=== PATIENT | male | born 1985 | race Hispanic/Latino ===

== ENCOUNTER 2018-10-17 11:58 | Inpatient (IN) ==
[2018-10-17] MEDS ORDERED: TORADOL IV ONE (12:53)
[2018-10-17] MEDS ORDERED: PROTONIX IV ONE (12:53)
[2018-10-17 13:25] LABS: URINE SOURCE CATH
[2018-10-17 13:29] LABS: BASO# 0.03 X1000 (0.0-0.2); BASO% 0.3 % (0.0-0.8); EOS% 2.9 % (0.0-10.0); HEMATOCRIT 44.5 % (42.0-52.0); HEMOGLOBIN 15.3 g/dL (14.0-18.0); IMM GRAN# 0.04 X1000 (0.0-0.04); IMM GRAN% 0.4 % (0.0-0.5); LYMPH# 0.79 X1000 (1.2-3.4); LYMPH% 7.6 % (20.5-51.1); MCHC 34.4 g/dL (33-37); MCV 81.5 FL (81-99); MONO# 1.32 X1000 (0.11-0.59); MONO% 12.6 % (1.7-9.3); MPV 8.8 FL (7.4-10.4); NEUT# 7.98 X1000 (1.4-6.5); NEUT% 76.2 % (42.2-75.2); PLT 354 X1000 (130-400); RBC 5.46 XMIL (4.7-6.1); RDW 12.1 % (11.5-14.5); WBC 10.46 X1000 (4.8-10.8)
[2018-10-17 13:32] LABS: UR EPITHELIAL CELLS <10 /HPF (<10); URINE BACTERIA NEGATIVE /HPF; URINE RBC <10 /HPF (<10); URINE WBC <10 /HPF (<10)
[2018-10-17 13:34] LABS: BILIRUBIN URINE NEGATIVE (NEGATIVE); BLOOD URINE NEGATIVE (NEGATIVE); COLOR YELLOW; GLUCOSE URINE NEGATIVE (NEGATIVE); KETONE URINE 80 mg/dL (NEGATIVE); LEUKOCYTES URINE NEGATIVE (NEGATIVE); NITRITE URINE NEGATIVE (NEGATIVE); PROTEIN URINE 30 mg/dL (NEGATIVE); SP GRAVITY URINE 1.022; TURBIDITY URINE CLEAR (CLEAR); UROBILINOGEN URINE NORMAL (NORMAL)
[2018-10-17] MEDS: SODIUM CHLORIDE 0.9% INJ ONE (13:37)
[2018-10-17 13:44] LABS: ESTIMATED GFR > 60
[2018-10-17 13:46] LABS: AGAP 14; ALBUMIN 3.6 g/dL (3.5-5.0); ALKALINE PHOSPHATASE 186 U/L (32-122); AMYLASE 58 U/L (20-200); BUN 7 mg/dL (8-22); CALCIUM 9.2 mg/dL (8.8-10.2); CHLORIDE 89 mmol/L (98-107); COSMO 259; CREATININE 0.6 mg/dL (0.7-1.2); GLUCOSE 105 mg/dL (70-104); GOT 23 U/L (10-34); GPT 34 U/L (10-44); LIPASE 39 U/L (13-60); POTASSIUM 4.3 mmol/L (3.5-5.1); SODIUM 130 mmol/L (136-145); TCO2 27 mmol/L (25-35); TOTAL BILIRUBIN 0.31 mg/dL (0.20-1.00); TOTAL PROTEIN 7.3 g/dL (6.3-8.3)
--- NOTE | 2018-10-17 14:47 | Diag Imaging Result Doc PS360 ---
CT ABD/PELVIS W/IV CONT ONLY - 10/17/2018 INDICATION: abdominal pain COMPARISON: 10/02/2018 FINDINGS: There is a moderate right and small left pleural effusion. There is some passive atelectasis of the lower lobes. Heart size is normal. There is a small amount of ascites. There is diffuse density throughout the omentum consistent with omental caking. There is significant peritoneal enhancement. Urinary bladder, prostate, and rectum are normal. No bowel obstruction or free air. There is some nonspecific small bowel wall thickening in the left mid abdomen. Abdominal organs all appear normal. Bony structures are intact. IMPRESSION: Bilateral pleural effusions. Small amount of ascites. Probable peritoneal carcinomatosis. Nonspecific small bowel wall thickening in the left mid abdomen. This exam was performed using automated exposure control, adjustment of mA or kV according to patient size, and/or use of iterative reconstruction technique Electronically signed by Bryce Villalpando 10/17/2018 2:45 PM
--- NOTE | 2018-10-17 15:56 | PROVIDER DOCUMENTATION ---
This chart was entered by Miroslava Ocampo Scribe, acting as scribe for Thelma Aguirre MD. HPI-Abdominal Pain/GI Problem - General Chief Complaint: Abdominal Pain Stated Complaint: STOMACH PAIN Time Seen by Provider: 10/17/18 12:50 Source: patient, family Allergies/Adverse Reactions: Patient Allergies Allergy/AdvReac Type Severity Reaction Status Date / Time No Known Allergies Allergy Verified 10/17/18 12:39 Home Medications: Home Medication List Medication Instructions Recorded Confirmed Last Taken Type Ciprofloxacin HCl [Cipro] 500 mg PO BID 10/17/18 10/17/18 Unknown History Metronidazole 500 mg PO TID 10/17/18 10/17/18 Unknown History - History of Present Illness-ABD Nature of Presenting Problems: 33 yohm presents to the ed with c/o abdominal pain with diarrhea. pt sts has been dring alcohol more the last 3 months. pt saw pcp and was given abx shots but does not feel any better. pt also c/o discharge from penis but none was seen on exam Abdominal Pain Onset Location: reports: generalized abdomen Quality of Pain: reports: aching Severity in ED: reports: moderate Onset/Duration: reports: 3 days ago Timing: reports: still present, intermittent Activities at Onset: reports: light activity Modifying Factors: improves with: nothing. worse with: eating, other (ETOH) Associated Symptoms: reports: diarrhea, genitourinary problems (discharge from penis), loss of appetite, malaise. denies: back/neck pain, chest pain, fever/chills, headaches, nausea, shortness of breath, vomiting, weakness Last BM: last night Dark Stools Present?: reports: none noticed Rectal Bleeding: reports: none # of Diarrhea Episodes: 4 Rectal Pain: reports: none # of Vomiting Episodes: 0 Emesis Description: reports: none Bruising or Bleeding Gums?: No Similar Symptoms Previously?: Yes (diverticulitis) Recently seen or treated by another doctor?: Yes (saw pcp) Review of Systems - Adult - REVIEW OF SYSTEMS - ADULT ROS:: ROS per family (translater) Constitutional: denies: chills, fever Eyes: reports: no symptoms reported Ears, Nose, Mouth & Throat: reports: no symptoms reported Cardiovascular: denies: chest pain, palpitations Respiratory: denies: shortness of breath, wheezing Gastrointestinal: reports: see HPI, abdominal pain, diarrhea, poor appetite. d enies: nausea, vomiting Genitourinary: reports: see HPI, dysuria Musculoskeletal: denies: back pain, neck pain Integumentary: reports: no symptoms reported Neurological: denies: dizziness/vertigo, headache/migraines Psychiatric: reports: no symptoms reported Endocrine: reports: no symptoms reported Hematologic/Lymphatic: reports: no symptoms reported Allergic/Immunologic: reports: no symptoms reported All Other Systems: Reviewed and Negative Past History - Adult - PAST MEDICAL HISTORY-ADULT Review of Records: reports: Old Records Reviewed, Nursing Assessment Review, Medications Reviewed, Social history reviewed & non-contributory. Major Childhood Illnesses: reports: denies history Cardiovascular: reports: denies history Respiratory: reports: denies history Gastrointestinal: reports: denies history Genitourinary: reports: denies history Musculoskeletal: reports: denies history Hand Dominance: Right Handed Neurological: reports: denies history Psychiatric: reports: denies history Endocrine/Immune: reports: denies history Other Conditions: reports: denies history - PRIOR SURGERIES/PROCEDURES Surgical/Procedure History: reports: none - PRIOR HOSPITALIZATIONS Prior Hospitalizations: reports: none - IMMUNIZATION STATUS Childhood Immunizations: See Nurse Assessment Flu Vaccine: See Nurse Assessment - FAMILY HISTORY Family History: reviewed, not pertinent - SOCIAL HISTORY Smoking: denies Substance Use: alcohol Alcohol Use Frequency: 5-6 times a week Number of drinks per typical drinking period:: 3-4 drinks Living Situation: family Physical Exam-General - PHYSICAL EXAM-ADULT Initial Vital Signs Reviewed: Yes - CONSTITUTIONAL General Appearance: appears well, alert, mild distress - EYES Eyes: PERRL/EOMI, pink conjunctivae - HEAD, EARS, NOSE, MOUTH & THROAT HENMT: normocephalic/atraumatic, moist mucous membranes, normal ENT inspection - NECK Neck: non-tender, full range of motion, supple, normal inspection - RESPIRATORY Respiratory: chest non-tender, lungs clear, normal breath sounds - CARDIOVASCULAR Cardiovascular: normal peripheral pulses, regular rate, rhythm - GASTROINTESTINAL (ABDOMEN) Abdominal Exam: soft, no organomegaly, no pulsatile mass, abnormal bowel sounds (hyper), distended (mild), guarding, tenderness (diffuse). negative: rigid, rebound - LYMPHATIC Lymphatic: no adenopathy - MUSCULOSKELETAL Back Exam: normal inspection, no CVA tenderness, no vertebral tenderness Extremity: normal range of motion, non-tender, normal gait, normal inspection, no pedal edema, no calf tenderness, normal capillary refill - SKIN Integumentary: normal color, normal turgor, warm/dry - NEUROLOGIC Neurologic: grossly normal, no motor/sensory deficits - PSYCHIATRIC Psych/Mental Status: normal mood/affect, normal thought content, normal thought process, oriented x 3 Progress - PLAN OF CARE/RESULTS Progress/Plan/Lab Results: Vital Signs - 8 hr 10/17/18 12:04 Temperature 98.2 F Pulse Rate 89 Respiratory Rate 20 Blood Pressure 134/94 O2 Sat by Pulse Oximetry 96 Orders Category Date Time Status Saline Loc DIRECTED Care 10/17/18 12:51 Active NPO Diet 10/17/18 12:[address] ABD/PELVIS W/IV CONT ONLY [CT] Stat Exams 10/17/18 12:52 Ordered AMYLASE [CHEM] Stat Lab 10/17/18 12:51 Uncollected CBC WITH ELECTRONIC DIFF [HEME] Stat Lab 10/17/18 12:51 Uncollected COMPREHENSIVE METABOLIC PANEL [CHEM] Stat Lab 10/17/18 12:51 Uncollected LIPASE [CHEM] Stat Lab 10/17/18 12:51 Uncollected URINALYSIS W/POSS RFLX CULT [URINALYSIS] Stat Lab 10/17/18 12:51 Uncollected Ketorolac [Toradol] Med 10/17/18 12:53 Discontinued 30 mg IV NOW ONE Pantoprazole [Protonix] Med 10/17/18 12:53 Discontinued 40 mg IV NOW ONE Sodium Chloride 0.9% Med 10/17/18 12:53 Discontinued 10 ml INJ NOW ONE Result Diagrams: 10/17/18 12:29 10/17/18 12:29 - REASSESSMENT Reassessment #1 Time Reassessed: 14:18 (resting in bed) Status: unchanged Reassessment #2 Time Reassessed: 15:33 (dr aguirre spoke with pt and family about poc and dx. pt verbalized understanding and agreement with poc) - CT/MRI 1 CT Study: Abdomen, Pelvis Impression: See EMR Report (CT ABD/PELVIS W/IV CONT ONLY - 10/17/2018 INDICATION: abdominal pain COMPARISON: 10/02/2018 FINDINGS: There is a moderate right and small left pleural effusion. There is some passive atelectasis of the lower lobes. Heart size is normal. There is a small amount of ascites. There is diffuse density throughout the omentum consistent with omental caking. There is significant peritoneal enhancement. Urinary bladder, prostate, and rectum are normal. No bowel obstruction or free air. There is some nonspecific small bowel wall thickening in the left mid abdomen. Abdominal organs all appear normal. Bony structures are intact. IMPRESSION: Bilateral pleural effusions. Small amount of ascites. Probable peritoneal carcinomatosis. Nonspecific small bowel wall thickening in the left mid abdomen. This exam was performed using automated exposure control, adjustment of mA or kV according to patient size, and/or use of iterative reconstruction technique Electronically signed by Bryce Villalpando 10/17/2018 2:45 PM 10/17/18 1445 Interpreting Physician: Bryce Villalpando MD Dictated Date/Time: 10/17/18 1429 cc: Thelma Aguirre MD; Valdo Todd MD) - CONSULTS/PCP/HOSPITALIST Notification #1 *Consult/PCP/Hospitalist*: hospitalist Time Discussed: 15:32 (spoke with [facility]) Reason/Comments: abdominal cancer dr nevarez Consult Disposition: Admit #2 Consult: dr esparza srobbie Time Discussed: 15:52 Reason/Comments: phone consult Consult Disposition: other Departure - Departure Date of Disposition Decision: 10/17/18 Time of Disposition Decision: 15:34 DIAGNOSIS: Ascites Qualifiers: Ascites type: malignant Qualified Code(s): R18.0 - Malignant ascites Abdominal pain Qualifiers: Abdominal location: generalized Qualified Code(s): R10.84 - Generalized abdominal pain Disposition: ADMITTED INPATIENT 09 Certified Medical Emergency: Emergent Condition: Stable Referrals and Follow-Ups: Valdo Todd MD [Primary Care Provider] - - Critical Care Note This patient required my direct & personal management of CC.: Yes Total Time (mins): 38 Critical Care Statement: This patient required my direct personal management to treat or rule out processes, the absence of which, could potentiallly result in sudden, clinically significant life or limb threatening deterioration. Attestation - Physician/ WALI Attestation Patient care was provided by Advanced Practice Provider:: No The physician spent face to face time with patient:: Yes Advanced Practice Provider documentation review:: Supervising physician onsite and consulted in the evaluation and care of this patient. The physician did have a face to face encounter with the patient. This chart was documented by the indicated scribe, (Miroslava Ocampo Scribe) and accurately reflects the services I performed and decisions made by , Thelma gAuirre MD, as attested by the provider's signature.
--- NOTE | 2018-10-17 16:23 | Diag Imaging Result Doc PS360 ---
CT THORAX W/CONTRAST - 10/17/2018 INDICATION: r/o malg. COMPARISON: None FINDINGS: There is a moderate right and small left pleural effusion. There is bilateral lower lobe atelectasis. There is some hazy central interstitial infiltrate bilaterally compatible with pulmonary edema. There are some top normal size mediastinal lymph nodes but no adenopathy. Heart and great vessels are normal. Bony structures are intact and normally mineralized. IMPRESSION: Central interstitial infiltrates compatible with pulmonary edema. Bilateral pleural effusions. Bilateral lower lobe passive atelectasis. This exam was performed using automated exposure control, adjustment of mA or kV according to patient size, and/or use of iterative reconstruction technique Electronically signed by Bryce Villalpando 10/17/2018 4:21 PM
--- NOTE | 2018-10-17 16:34 | HISTORY AND PHYSICAL ---
PRIMARY CARE PHYSICIAN: None. CHIEF COMPLAINT: Abdominal pain. HISTORY OF PRESENT ILLNESS: This is a 33-year-old male with unremarkable past medical history, who presented to the emergency department complaining of abdominal pain. He had been seen here in the ER at [facility] on 10/02/2018 for the same complaint. He reports that he started having pain in the left lower quadrant one month ago that started to get worse progressively. He reports a weight loss of 4 pounds. He reports he has a good appetite, but he is not eating well because every time he eats because the abdominal distention after he eats causes pain and that is why he was not eating properly. After he has been seen here in the ER on October 02, he went to see Dr. Celeste from Gastroenterology at his office. A paracentesis was done. We do not have the results of those exams. He was prescribed metronidazole for that, and because the pain continued to get worse, he decided to come to the emergency department. Upon ER evaluation, the abdominal CT show bilateral pleural effusion with a small amount of ascites. They report also possible peritoneal carcinomatosis and nonspecific small bowel thickening in the left mid abdomen, so that is why we were called for admission. PAST MEDICAL HISTORY: None. PAST SURGICAL HISTORY: None. SOCIAL HISTORY: Patient lives with and daughter. He reports drinking alcohol since he was 13. He used to drink according to him for many days in a row, but according to the of the patient, he stopped drinking 2 or 3 months ago. He denies using any illicit drugs or smoking cigarettes. FAMILY HISTORY: The patient has a brother who has apparently an stroke, and father from unknown disease. REVIEW OF SYSTEMS: Eleven systems were reviewed. Patient has a weight loss of 4 pounds. He denies any night sweats. Reports no changes in bowel movements. Patient used to be constipated. DISCHARGE PHYSICAL EXAMINATION: Vital signs: Temperature 98.2 degrees, heart rate 89, respiratory rate 20, blood pressure 134/94, O2 saturation 96% on room air. General examination: This is a 33-year-old male, lying in bed, in no acute distress. HEENT: Head is normocephalic and atraumatic. Pupils equally round and reactive to light and accommodation. Anicteric sclerae. Normal conjunctivae. Neck: No JVD noted. No carotid bruits. No lymphadenopathy. No thyromegaly. Cardiovascular: S1, S2 heard. No murmurs, gallops, or rubs. Regular rate and rhythm. Respiratory: Clear bilaterally to auscultation. No work of breathing or using accessory muscles. Abdomen: Soft, a little bit distended, but no signs of obvious ascites, moderately tender to palpation in the left lower quadrant. No signs of peritoneal irritation. No guarding. Extremities: No clubbing, cyanosis, or edema. Peripheral pulses present in both legs. Neurological: Patient alert and oriented x3. Moves 4 extremities. LABORATORY DATA: CBC is unremarkable. BMP shows sodium 130 with anion gap 14, creatinine 0.6, alkaline phosphatase 186. Normal urinalysis. ASSESSMENT AND PLAN: 1. Abdominal pain. We are not sure at this point, what is causing this pain. The CT of the abdomen shows a small amount of ascites and possible peritoneal carcinomatosis. Because this pain is getting worse, we are going to admit the patient for further workup. We are going to consult Gastroenterology for possible endoscopy and colonoscopy. To complete the staging for possible abdominal cancer, we will do a CT of the thorax with contrast. We are going to do an abdominal ultrasound as well. I am not quite sure if we are going to find ascites or not to get another sample of that. We will try to get records from Dr. Celeste's office about results of peritoneal fluid. We are going to provide IV fluids and pain medications as well. We will continue to monitor this patient closely. 2. History of alcohol abuse. At this point, I do not think this patient will going into withdrawal because he had stopped drinking 2 months ago. We will continue to monitor. Further recommendations to follow according to the clinical situation of the patient. cc: Zoltan Santana MD MTDD
[2018-10-17] MEDS ORDERED: SODIUM CHLORIDE 0.9% INJ ONE (16:46)
[2018-10-17] MEDS: PROTONIX IV SCH (16:46)
[2018-10-17] MEDS ORDERED: ZOFRAN IV PRN (16:46)
[2018-10-17] MEDS: TORADOL IV SCH ×2 (16:50→22:51)
[2018-10-17] MEDS: NS 1,000 ML IV SCH (16:55)
--- NOTE | 2018-10-17 16:56 | Diag Imaging Result Doc PS360 ---
US ABDOMEN-COMPLETE - 10/17/2018 INDICATION: abdominal pain LLQ COMPARISON: CT with contrast from earlier today FINDINGS: There is ascites. There is significant echogenic sludge in the gallbladder. No gallbladder wall thickening. The spleen measures 11.7 x 10.9 x 4 cm. The liver and both kidneys are normal. Common bile duct measures 4 mm. Aorta, IVC, and main portal vein are patent. There are bilateral pleural effusions. IMPRESSION: 1. Significant sludge in the gallbladder but no definite gallbladder inflammation. 2. Ascites. Bilateral pleural effusions. Electronically signed by Bryce Villalpando 10/17/2018 4:54 PM
[2018-10-17 20:39] LABS: BASO# 0.03 X1000 (0.0-0.2); BASO% 0.3 % (0.0-0.8); EOS% 5.3 % (0.0-10.0); HEMATOCRIT 40.8 % (42.0-52.0); HEMOGLOBIN 14.1 g/dL (14.0-18.0); IMM GRAN# 0.03 X1000 (0.0-0.04); IMM GRAN% 0.3 % (0.0-0.5); LYMPH# 1.28 X1000 (1.2-3.4); LYMPH% 13.5 % (20.5-51.1); MCH 28.3 PG (27-31); MCHC 34.6 g/dL (33-37); MCV 81.9 FL (81-99); MONO% 11.6 % (1.7-9.3); MPV 8.2 FL (7.4-10.4); NEUT# 6.56 X1000 (1.4-6.5); PLT 328 X1000 (130-400); RBC 4.98 XMIL (4.7-6.1); RDW 12.2 % (11.5-14.5)
[2018-10-17 20:59] LABS: AGAP 14; ALB/GLOB RATIO 0.9; ALBUMIN 3.1 g/dL (3.5-5.0); ALKALINE PHOSPHATASE 154 U/L (32-122); BUN 9 mg/dL (8-22); CALCIUM 8.6 mg/dL (8.8-10.2); CHLORIDE 94 mmol/L (98-107); COSMO 264; CREATININE 0.7 mg/dL (0.7-1.2); ESTIMATED GFR > 60; GLUCOSE 88 mg/dL (70-104); GOT 18 U/L (10-34); GPT 28 U/L (10-44); POTASSIUM 4.3 mmol/L (3.5-5.1); SODIUM 133 mmol/L (136-145); TCO2 25 mmol/L (25-35); TOTAL BILIRUBIN 0.33 mg/dL (0.20-1.00); TOTAL PROTEIN 6.4 g/dL (6.3-8.3)
[2018-10-17] MEDS: MORPHINE IV PRN (21:11)
[2018-10-18] MEDS: MORPHINE IV PRN ×2 (04:18→18:51)
[2018-10-18] MEDS: TORADOL IV SCH ×4 (04:18→21:43)
[2018-10-18] MEDS: NS 1,000 ML IV SCH ×2 (06:48→21:42)
[2018-10-18 12:08] LABS: INR 1.09
[2018-10-18 12:09] LABS: PTT 31.2 Seconds (22.3-41.8)
--- NOTE | 2018-10-18 12:16 | GASTROENTEROLOGY CONSULTATION ---
DATE: 10/18/2018 ATTENDING PHYSICIAN: Dr. Jones. PRIMARY CARE DOCTOR: Dr. Todd. REASON FOR CONSULTATION: Abdominal pain and abnormal CAT scan, elevated CEA. HISTORY OF PRESENT ILLNESS: Mr. Maharaj is a 33-year-old, male who was admitted on 10/17/2018 for worsening abdominal pain. According to the patient, this pain started for the last 1 month and has gotten worse. He has lost about 4 pounds in the last 1 month. Initial workup in the ER had shown evidence of ascites. He was seen by Dr. Celeste as an outpatient. He had a paracentesis but the paracentesis fluid did not show any evidence of malignancy. He progressively got worse and came to the ER. The CAT scan done this time showed evidence of bilateral pleural effusion, a small amount of ascites, and nonspecific small bowel thickening in the left mid abdomen, and possible peritoneal carcinomatosis. He had a CEA done which was elevated at 10.8. The patient denies any previous history of EGD or colonoscopy in the past. He denies any family history of colon cancer or stomach cancer. The patient had been a heavy drinker since age 13 but he had quit about 2 or 3 months ago. He denied any nausea, vomiting, vomiting blood, or passing blood in the stools. PAST MEDICAL HISTORY: Abdominal pain for the last 1 month, ascites. PAST SURGICAL HISTORY: He had a paracentesis done at [facility] per Dr. Celeste. SOCIAL HISTORY: He is . His lives with his and daughter. He reports drinking about 12 beers on the weekends and sometimes on weekdays but he had quit about 2 or 3 months ago. He denies any history of illicit drug use or smoking. FAMILY HISTORY: Brother had a stroke. Father of unknown cause. REVIEW OF SYSTEMS: Denies any fevers, rigors, chills, chest pain, shortness of breath, dyspnea. Denies any vomiting blood or passing blood in the stools. Does complain of weight loss and chronic abdominal pain. MEDICATIONS: In the hospital include morphine, ketorolac, normal saline at 75 mL per hour, Zofran, Protonix, and he is NPO. PHYSICAL EXAMINATION: Vital Signs: Temperature of 97.8 degrees, pulse rate of 85, respiratory rate of 16, blood pressure 122/77, saturating 96% on room air. Body weight of 160 pounds. BMI 24.3 kg/m2. General Appearance: Moderately built, moderately nourished, lying in bed, in no acute distress. HEENT: No pallor. No icterus. Pupils equal, reactive to light. Neck: Supple. Abdomen: Discomfort in the periumbilical region. No rebound or guarding. Extremities: No cyanosis, clubbing, edema. Neurological: Alert, awake, oriented x3. LABS: Hemoglobin and hematocrit are 14.1 and 40.8, white count of 9.5, platelet count of 328,000. Sodium 133, potassium 4.3, chloride 94, bicarb 25, anion gap 14, BUN of 9, creatinine 0.7, glucose of 80, calcium is 8.6, magnesium 2.0. Total bilirubin is 0.32, AST 18, ALT 28, alkaline phosphatase 154, total protein 6.4, albumin 3.1, amylase of 50, lipase 39. CEA is 10.3. TSH 1.36. Urinalysis, small amount of protein and small ketones. Imaging in the form of abdominal ultrasound done which showed evidence of significant sludge in the gallbladder but no definite gallbladder inflammation. Ascites, bilateral pleural effusion. CT scan of the abdomen and pelvis showed bilateral pleural effusions, small amount of ascites, and probable peritoneal carcinomatosis, nonspecific small bowel thickening in the left mid abdomen. CT of the chest showed central interstitial infiltrates compatible with pulmonary edema, bilateral pleural effusions, bilateral lower lobe passive atelectasis. IMPRESSION AND PLAN: 1. Abdominal pain. 2. Abnormal CT scan showing positive small bowel wall thickening and probable peritoneal carcinomatosis. 3. Ascites. 4. Bilateral pleural effusions. 5. Elevated CEA. 6. History of alcoholism. RECOMMENDATIONS: 1. We will schedule the patient for EGD and colonoscopy tomorrow. We will follow up on oncology workup. He will continue on Protonix once daily. He is on IV pain control. He is on IV fluids. We will start him on a clear liquid diet today. 2. Further recommendations to follow pending the hospital course. The above plan was discussed with the patient and family at bedside. All of their questions were answered. Please call us with any further questions. cc: MD Valdo Wilkinson MD
[2018-10-18 12:39] LABS: HEPATITIS PROFILE ACUTE SEE COMMENTS
[2018-10-18] MEDS ORDERED: GOLYTELY PO ONE (14:00)
--- NOTE | 2018-10-18 14:06 | HEMO/ONC CONSULTATION ---
DATE: 10/18/2018 CHIEF COMPLAINT: We have been consulted for possible carcinomatosis. HISTORY OF PRESENT ILLNESS: Mr. Maharaj is a 33-year-old male who presented to the emergency department complaining of increasing abdominal pain and diarrhea. The patient was recently seen in the ER before, on 10/02/2018 for the same complaint. The pain progressively continues to get worse. He has lost approximately 4 pounds. He normally has a good appetite but has not eating well because every time he eats time he has abdominal distention and increased amounts of pain. The patient did follow up with gastroenterology after that visit and had a paracentesis supposedly done. He was placed on metronidazole for that. While in the emergency department this time, the patient had a CT that did show bilateral pleural effusions with a small amount of ascites and probable peritoneal carcinomatosis, and some nonspecific small bowel thickening in the left mid abdomen. He was admitted at that time for further evaluation and management. PAST MEDICAL HISTORY: None. PAST SURGICAL HISTORY: None. SOCIAL HISTORY: The patient has been drinking alcohol since he was 13 years old. The patient supposedly stopped drinking approximately 2 months ago. The patient denies any illicit drug use or tobacco. FAMILY HISTORY: CVA. REVIEW OF SYSTEMS: Negative unless mentioned in the HPI. PHYSICAL EXAMINATION: Vital Signs: Temperature of 97.8 degrees, heart rate 85, respiratory rate 16, blood pressure 122/77, saturating 96% on room air. General: The patient is awake, lying in bed. No acute distress noted. HEENT: Anicteric. Pupils PERRLA. Mucous membranes appear to be moist. Neck: Supple. Trachea midline. No JVD. Lymph Node Survey: No palpable lymphadenopathy. Chest: Bilateral breath sounds clear to auscultation. Cardiovascular: S1, S2. Regular rate and rhythm. Abdomen: Soft. Tenderness to periumbilical area. No hepatosplenomegaly noted. Skin: Warm, dry, and intact. Neurologic: Alert and oriented x3. No focal deficits noted. LABORATORY DATA: White cell count is 9.50, hemoglobin 14, hematocrit 40.8, platelets are 328,000. Potassium 4.3, BUN 9, creatinine 0.7. CEA is 10.3. RADIOLOGY RESULTS: Abdominal ultrasound shows significant sludge in the gallbladder with no definite gallbladder inflammation, ascites and bilateral pleural effusions. Chest CT shows central interstitial infiltrates compatible with pulmonary edema, bilateral pleural effusions, and bilateral lower lobe passive atelectasis. Abdomen and pelvis CT shows bilateral effusions, prominent ascites, probable peritoneal carcinomatosis, nonspecific small bowel thickening in the left mid abdomen. ASSESSMENT AND PLAN: 1. Possible carcinomatosis. CEA 10.3. AFP and CA-19-9 is pending. We will continue to monitor labs and make further recommendations and follow along with the patient. 2. Abdominal pain: Gastroenterology has also been consulted. Continue recommendations per primary medical team and gastroenterology. 3. Alcohol abuse: Continue to monitor for withdrawals. Continue recommendations per primary medical team. Plan of care was discussed with Dr. Najera. Dictated by ZAN Hernandez for Willi Najera MD Patient seen and examined. As above. CT scan findings suggestive of peritoneal carcinomatosis. Patient has gone down for paracenteses. Dr. Blancas is on board. Plan for EGD and colonoscopy. If this does not give a diagnosis, consider omental biopsy or laparoscopy. Willi Najera M.D. cc: ZAN Hernandez MD [facility]
--- NOTE | 2018-10-18 14:17 | Diag Imaging Result Doc PS360 ---
EXAM: US ABD PARACENTESIS W S/I 10/18/2018 HISTORY: suspected malignant ascites TECHNIQUE: Ultrasound-guided paracentesis COMMENT: The risks and benefits of the procedure including the possibility of bleeding, infection, reaction to lidocaine, or puncture of hollow viscus was discussed with the patient and he agreed to the procedure. Following sterile preparation of the skin and administration of 1% lidocaine to the skin and deeper soft tissues, under ultrasonographic guidance a 20-gauge spinal needle was advanced into the fluid pocket in the right upper abdomen and approximately 50 mL of pink slightly turbid fluid was aspirated. This was sent to the laboratory in its entirety. There are no immediate complications. IMPRESSION: Successful ultrasound-guided paracentesis. Electronically signed by Denis Bkaer 10/18/2018 2:14 PM
--- NOTE | 2018-10-18 14:23 | PROGRESS NOTE ---
DATE: 10/18/2018 SUBJECTIVE: The patient reports feeling fine. Abdominal pain is under control with medication that he received; in this case, it is Toradol IV. Denies any other complaints. OBJECTIVE: Vital Signs: Temperature 98.3 degrees, heart rate 89, respiratory rate 16, blood pressure 122/68, O2 saturation 96% on room air. General Examination: This is a 33-year-old, male, lying in bed, in no acute distress. HEENT: Head is normocephalic, atraumatic. Neck: No JVD noted. No carotid bruits. No lymphadenopathy. No thyromegaly. Cardiovascular Examination: S1 and S2 heard. No murmurs, gallops, or rubs. Regular rate and rhythm. Respiratory Examination: Clear bilaterally to auscultation. No work of breathing or using accessory muscles. Abdomen: Soft. Mildly tender to palpation in the left lower quadrant, actually near to the inguinal area. There were no signs of peritoneal irritation. Mild abdominal distention. Neurological Examination: The patient is alert and oriented x3. Moves 4 extremities. Laboratory Data: Reviewed. ASSESSMENT AND PLAN: 1. Abdominal pain. We admitted him for this problem. 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 Gastroenterology has been consulted. They are planning to do a colonoscopy and endoscopy tomorrow. We will see what it shows. In the meantime, we will continue with intravenous fluids and controlling the pain. 2. History of alcohol abuse. Aware. cc: Zoltan Santana MD MTDD
[2018-10-18] MEDS: PROTONIX IV SCH (16:10)
[2018-10-18 16:26] LABS: ALBUMIN BODY FLUID 2.2 g/dL; AMYLASE BODY FLUID 40 U/L
[2018-10-18 16:54] LABS: BODY FLUID SOURCE PERITONEAL FLUID; MONOS 79 %; POLYS 21 %; WBC BF 1816 /cumm
--- NOTE | 2018-10-18 20:40 | GENERAL SURGERY CONSULTATION ---
DATE: 10/18/2018 HISTORY OF PRESENT ILLNESS: This 33-year-old gentleman who is otherwise healthy has had abdominal discomfort for several weeks to months. He presented, where CT scan showed a large amount of ascites, possible carcinomatosis and small-bowel thickening in the left midabdomen. He denies any nausea or vomiting. He says bowel movement has been regular. He is scheduled for colonoscopy and EGD tomorrow. He had a paracentesis earlier today. He does have several tumor markers that are elevated. PAST MEDICAL HISTORY: Negative. PAST SURGICAL HISTORY: Negative. SOCIAL HISTORY: He drinks, but none recently. FAMILY HISTORY: Reviewed, noncontributory. REVIEW OF SYSTEMS: Ten-point negative. PHYSICAL EXAMINATION: Temperature is 98.5 degrees, pulse 92, blood pressure 131/78, oxygen saturation is 97%. Generally he is alert. HEENT: There is no scleral icterus. No cervical mass. Cardiovascular: Normal rate. Pulmonary: No increased work of breathing. Abdomen is soft but mildly distended. No varices. Integument is warm and dry. Psychiatric: Appropriate affect. Neurologic: No gross deficits. Peripheral vascular: No lower extremity edema. Lymphatic: No inguinal or cervical adenopathy. LABORATORY DATA: White count is 9, hematocrit 40, platelets 328,000. INR is 1.09. Creatinine 0.7. AFP is less than 2.7. CEA is 10.3. I do not see that he has had a CA19-9. Hepatitis panel is nonreactive. He does have a lot of white blood cells on his paracentesis fluid. DIAGNOSTIC DATA: I reviewed his imaging. ASSESSMENT AND PLAN: A 33-year-old gentleman with ascites and pleural effusion of unclear etiology. We will follow up his paracentesis for cytology and make further plans. We could always do a diagnostic laparoscopy to further define this if his paracentesis does not give us the answer. He is scheduled for esophagogastroduodenoscopy and a colonoscopy tomorrow. We will follow along. cc: Janet Browne MD
[2018-10-19] MEDS: TORADOL IV SCH ×2 (04:04→11:19)
[2018-10-19 06:14] LABS: BASO# 0.04 X1000 (0.0-0.2); BASO% 0.5 % (0.0-0.8); EOS# 0.52 X1000 (0.0-0.7); EOS% 6.4 % (0.0-10.0); HEMATOCRIT 38.7 % (42.0-52.0); HEMOGLOBIN 13.1 g/dL (14.0-18.0); IMM GRAN# 0.04 X1000 (0.0-0.04); IMM GRAN% 0.5 % (0.0-0.5); LYMPH# 0.75 X1000 (1.2-3.4); LYMPH% 9.3 % (20.5-51.1); MCH 28.2 PG (27-31); MCHC 33.9 g/dL (33-37); MCV 83.2 FL (81-99); MONO% 12.4 % (1.7-9.3); MPV 8.4 FL (7.4-10.4); NEUT# 5.74 X1000 (1.4-6.5); NEUT% 70.9 % (42.2-75.2); PLT 304 X1000 (130-400); RBC 4.65 XMIL (4.7-6.1); RDW 12.4 % (11.5-14.5); WBC 8.09 X1000 (4.8-10.8)
[2018-10-19 06:40] LABS: AGAP 16; ALB/GLOB RATIO 0.9; ALBUMIN 2.8 g/dL (3.5-5.0); ALKALINE PHOSPHATASE 120 U/L (32-122); BUN 13 mg/dL (8-22); CALCIUM 8.1 mg/dL (8.8-10.2); CHLORIDE 100 mmol/L (98-107); COSMO 277; CREATININE 0.5 mg/dL (0.7-1.2); ESTIMATED GFR > 60; GLUCOSE 87 mg/dL (70-104); GOT 18 U/L (10-34); GPT 19 U/L (10-44); POTASSIUM 3.8 mmol/L (3.5-5.1); SODIUM 139 mmol/L (136-145); TCO2 23 mmol/L (25-35); TOTAL PROTEIN 5.9 g/dL (6.3-8.3)
[2018-10-19] MEDS: NS 1,000 ML IV SCH ×3 (09:09→22:42)
--- NOTE | 2018-10-19 09:18 | HEMO/ONC PROGRESS NOTE ---
DATE: 10/19/2018 SUBJECTIVE: The patient still complains of some abdominal pain at times. The patient denies any new complaints at this time. OBJECTIVE: Vital Signs: Temperature 98.7 degrees, heart rate 80, respiratory 20, blood pressure 127/85, saturating 96% on room air. General: Patient is awake, lying in bed, no acute distress noted. HEENT: Anicteric. Mucous membranes moist. Cardiovascular: S1, S2. Regular rate and rhythm. Chest: Bilateral breath sounds clear to auscultation. Abdomen: Soft, nontender. Bowel sounds present all 4 quadrants. Neurologic: Alert and oriented x3. No focal deficits noted. LABORATORY DATA: White blood cell count is 8.9, hemoglobin 13.1, hematocrit 38.7, platelets are 304. Potassium 3.8, BUN 13, creatinine 0.5. ASSESSMENT AND PLAN: 1. Possible carcinomatosis: The patient is going for esophagogastroduodenoscopy and colonoscopy today. We will wait on to see what the results show at this time. Once we get the pathology results and things, we can make further recommendations. If esophagogastroduodenoscopy and colonoscopy do not show anything we may need to consider laparoscopy. 2. Abdominal pain: Continue recommendations per Gastroenterology and primary medical team. Dictated by ZAN Hernandez for Willi Najera MD Patient seen and examined. As above. For EGD and colonoscopy today. If that is negative and fluid from paracentesis is negative, he may require laparoscopy and biopsy. Willi Najera M.D. cc: ZAN Hernandez MD [facility]
[2018-10-19] MEDS ORDERED: DIPRIVAN 1% ONE ×2 (09:32→09:46)
[2018-10-19] MEDS ORDERED: SODIUM CHLORIDE 0.9% 20 ML ONE (10:05)
--- NOTE | 2018-10-19 13:16 | OPERATIVE NOTE ---
PROCEDURE DATE: 10/19/2018 PROCEDURES PERFORMED/EXAMS: 1. Esophagogastroduodenoscopy with biopsy. 2. Colonoscopy with biopsy. PROVIDER: Terry Farrell MD INDICATIONS: Abdominal pain, ascites, suspected carcinomatosis. MEDICATIONS: Monitored anesthesia care. PROCEDURE IN DETAIL: Prior to the procedure, a history and physical was performed, and the patient's medication and allergies were reviewed. The patient's tolerance of previous anesthesia was also reviewed. The risks and benefits of the procedure and sedation options and risks were discussed with the patient. All questions were answered. Informed consent was obtained. After reviewing the risks and benefits, the patient was deemed in satisfactory condition to undergo the procedure. Throughout the procedure, the patient's blood pressure, pulse, and oxygen saturations were monitored continuously. During the endoscopy, the endoscope was passed under direct visualization. The endoscope was introduced through the mouth and advanced to the second part of the duodenum. The upper GI endoscopy was accomplished without difficulty. The colonoscope was passed through the anus to the cecum, identified by the appendiceal orifice and ileocecal valve. Unable to intubate the ileocecal valve after multiple attempts. The patient tolerated the procedure well. The prep was adequate. COMPLICATIONS: No immediate complications. ESTIMATED BLOOD LOSS: Minimal. FINDINGS: The esophagus showed a small hiatal hernia. The Z-line was located 40 cm from the incisors. Within the stomach, there was moderate diffuse gastritis. Random gastric biopsies were obtained with cold biopsy forceps to rule out Helicobacter pylori. The duodenal bulb and second portion of duodenum were normal. Retroflexion in the stomach was unrevealing. Within the colon, there were a few scattered superficial ulcers measuring less than 5 mm in the sigmoid colon. Cold biopsy forceps were used to obtain biopsies. There were a few scattered diverticula seen throughout the colon. Retroflexion in the rectum revealed small internal hemorrhoids. Multiple attempts to intubate the ileocecal valve were unsuccessful. No obvious etiology of the patient's elevated CEA or imaging findings were found on endoscopy. IMPRESSION: 1. Hiatal hernia. 2. Gastritis, biopsied. 3. Sigmoid ulcers, biopsied. 4. Diverticulosis. 5. Internal hemorrhoids. RECOMMENDATIONS: - Await pathology results. - Advance diet as tolerated. - Upon further review of the ascites fluid analysis, there appears to be low SAAG, high white count ascites concerning for SBP. I have ordered him antibiotics. - There is some concern for malignancy versus tuberculosis peritonitis. - Agree with diagnostic laparoscopy with culture of the ascites if no obvious malignancies are found and peritoneal biopsy. We will follow with you. Please call with any questions or concerns. MTDD
--- NOTE | 2018-10-19 14:22 | PROGRESS NOTE ---
DATE: 10/19/2018 SUBJECTIVE: Patient reports that the pain is under control with medication we are giving to him. He denies any fever, any night sweats. As we mentioned before in the H P he reported that he has lost 4 pounds during the month, month and a half because he was not eating properly. OBJECTIVE: Vital Signs: Temperature 98.2 degrees, heart rate 84, respiratory rate 20, blood pressure 129/87, O2 saturation 96% on room air. General: This is a 33-year-old, male, lying in bed, in no acute distress. Cardiovascular: S1, S2 heard. No murmurs, gallops, or rubs. Regular rate and rhythm. Respiratory: Clear bilaterally to auscultation. No work of breathing or using accessory muscles. Abdomen: Soft, nontender to palpation. Bowel sounds present. No organomegaly. Extremities: No clubbing, cyanosis, or edema. Peripheral pulses present in both legs. Neurological: Patient alert oriented x3. Moves 4 extremities. LABORATORY DATA: Reviewed. ASSESSMENT/PLAN: 1. Abdominal pain and ascites, suspected carcinomatosis. The pain is under control. We have performed an endoscopy and colonoscopy as per GI. They found hiatal hernia with gastritis and sigmoid ulcers and diverticulosis. Apparently, there has not been any source of this possible peritoneal carcinomatosis. The peritoneal fluid has shown elevated white cell count so he has been started on antibiotics. In this case, ceftriaxone 1 gram IV every 24 hours for spontaneous bacterial peritonitis. The main concern right now is still malignancy but also could be peritoneal tuberculosis as well. In that regard, we are going to order QuantiFERON- TB in blood. 2. I think it will be very helpful to have diagnostic laparoscopy that I think can help us to confirm or rule out this peritoneal carcinomatosis and have a better visualization of the of the abdominal anatomy mainly if there is a concern for possible peritoneal tuberculosis. In any case, we will leave the decision to General Surgery and GI will continue to monitor this patient closely. cc: Zoltan Santana MD MTDD
[2018-10-19] MEDS: ROCEPHIN 1 GM in NS 50 ML IV SCH (14:54)
[2018-10-19] MEDS: PROTONIX IV SCH (16:10)
[2018-10-19] MEDS ORDERED: PERCOCET-10 ONE (17:14)
[2018-10-19] MEDS: MORPHINE IV PRN (22:42)
[2018-10-20] MEDS: MORPHINE IV PRN ×3 (03:41→16:00)
[2018-10-20 06:25] LABS: BASO# 0.02 X1000 (0.0-0.2); BASO% 0.3 % (0.0-0.8); EOS# 0.64 X1000 (0.0-0.7); EOS% 8.8 % (0.0-10.0); HEMATOCRIT 39.2 % (42.0-52.0); IMM GRAN# 0.03 X1000 (0.0-0.04); IMM GRAN% 0.4 % (0.0-0.5); LYMPH# 0.89 X1000 (1.2-3.4); LYMPH% 12.2 % (20.5-51.1); MCHC 33.2 g/dL (33-37); MCV 84.3 FL (81-99); MONO# 0.95 X1000 (0.11-0.59); MONO% 13.1 % (1.7-9.3); MPV 8.6 FL (7.4-10.4); NEUT# 4.74 X1000 (1.4-6.5); NEUT% 65.2 % (42.2-75.2); PLT 318 X1000 (130-400); RBC 4.65 XMIL (4.7-6.1); RDW 12.6 % (11.5-14.5); WBC 7.27 X1000 (4.8-10.8)
[2018-10-20 06:44] LABS: AGAP 11; ALB/GLOB RATIO 0.9; ALBUMIN 2.6 g/dL (3.5-5.0); ALKALINE PHOSPHATASE 104 U/L (32-122); BUN 6 mg/dL (8-22); CHLORIDE 108 mmol/L (98-107); COSMO 283; CREATININE 0.5 mg/dL (0.7-1.2); ESTIMATED GFR > 60; GLUCOSE 99 mg/dL (70-104); GOT 17 U/L (10-34); GPT 16 U/L (10-44); SODIUM 143 mmol/L (136-145); TCO2 24 mmol/L (25-35); TOTAL BILIRUBIN 0.18 mg/dL (0.20-1.00); TOTAL PROTEIN 5.6 g/dL (6.3-8.3)
[2018-10-20] MEDS: ROCEPHIN 1 GM in NS 50 ML IV SCH (12:01)
--- NOTE | 2018-10-20 13:09 | PROGRESS NOTE ---
DATE: 10/20/2018 SUBJECTIVE: Patient reports pain is under control. Patient denies any fever, any significant weight loss. He sometimes is feeling heartburn. OBJECTIVE: Vital Signs: Temperature 98.0 degrees, heart rate 79, respiratory rate 20, blood pressure 135/98, O2 saturation 97% on room air. General examination: This is a 33-year-old male, lying in bed in no acute distress. Cardiovascular exam: S1, S2 heard. No murmurs, gallops, or rubs. Regular rate and rhythm. Respiratory exam: Clear bilaterally to auscultation. No work of breathing or using accessory muscles. Abdomen: Soft, a little bit tender to palpation in the left lower quadrant, but there are no signs of peritoneal irritation. Mildly distended. Extremities: No clubbing, cyanosis, or edema. Peripheral pulses present in both legs. Neurological exam: Patient alert and oriented x3. Moves 4 extremities. LABORATORY DATA: Reviewed. ASSESSMENT AND PLAN: 1. Abdominal pain and ascites. Suspect carcinomatosis. Workup is in progress. So far, endoscopy and colonoscopy has been done, but no source of any cancer found. They described hiatal hernia with gastritis and sigmoid ulcers with diverticulosis, internal hemorrhoids, but nothing else noted. At this point, I think that diagnostic laparoscopy will be the next step in the workup for this patient, but will leave that decision to Surgery and Gastroenterology. The patient today was asked about any possible contact with tuberculosis and was negative. At this point, we will continue with the same management. 2. Spontaneous bacterial peritonitis. Gastroenterology has started this patient on ceftriaxone. Abdominal pain is getting much better. He is not requiring pain medication as he was at admission. We will continue with the same management. cc: Zoltan Santana MD
--- NOTE | 2018-10-20 14:22 | GENERAL SURGERY PROGRESS NOTE ---
DATE: 10/20/2018 SUBJECTIVE: The patient reports mild abdominal pain. OBJECTIVE: Vital Signs: He is afebrile. Vital signs are stable. General: He is awake, alert, oriented x3. No acute distress. GI: Soft, mildly tender. No rebound or guarding. No mass appreciated. ASSESSMENT AND PLAN: A 33-year-old male with possible carcinomatosis, ascites and pleural effusion. The esophagogastroduodenoscopy and colonoscopy were unremarkable for a source of his abdominal complaints. Dr. Browne will proceed with diagnostic laparoscopy on Monday unless his paracentesis cytology comes back diagnostic. cc: Daniel Staley MD
[2018-10-20] MEDS: PROTONIX IV SCH (15:54)
[2018-10-20] MEDS: NS 1,000 ML IV SCH (15:54)
--- NOTE | 2018-10-20 22:25 | PROVIDER PROGRESS NOTE ---
Progress Note SUBJECTIVE: No acute overnight events. Patient reports persistent but improving abdominal pain. Tolerating PO. No N/V/F. He denies night sweats or weight loss. No cough. OBJECTIVE: Last Vital Signs Temp 97.9 F 10/20/18 19:30 Pulse 87 10/20/18 19:30 Resp 20 10/20/18 19:30 BP 142/92 10/20/18 19:30 Pulse Ox 97 10/20/18 19:30 Height 5 ft 8 in Weight 160 lb GEN: awake, alert, NAD HEENT: anicteric, MMM NECK: supple, no jvd CV: RRR, no murmurs PULM: CTAB ABD: distended, NT, ND, NABS EXT: no cce NEURO: nonfocal LABS 10/20/18 10/20/18 05:52 05:52 WBC 7.27 Hgb 13.0 L Plt Count 318 Sodium 143 Potassium 4.0 Chloride 108 H Carbon Dioxide 24 L BUN 6 L D Creatinine 0.5 L Calcium 8.0 L Total Bilirubin 0.18 L AST 17 ALT 16 Alkaline Phosphatase 104 Total Protein 5.6 L Albumin 2.6 L EGD/Colonoscopy 10/19 IMPRESSION: 1. Hiatal hernia. 2. Gastritis, biopsied. 3. Sigmoid ulcers, biopsied. 4. Diverticulosis. 5. Internal hemorrhoids. Mr. Edwardo Maharaj is a 33 year old man who presented with abdominal pain found to have low SAAG, high PMN ascites with imaging showing pleural effusions and peritoneal carcinomatosis. Elevated CEA. Normal CA19-9, AFP. EGD showed gastritis (biopsied), non-specific sigmoid ulcers (biopsied), hiatal hernia, diverticulosis, and hemorrhoids. However, no etiology of ascites found. Patient reports prior heavy alcohol use but none recently. He also denies prior exposure to TB. #Ascites with SBP: on CTX; surgery following; planning on diagnostic laparoscopy given concern for malignancy vs TB - recommend placing PPD - final ascites culture pending #Elevated CEA: concerning for malignancy #Gastritis: path pending: continue PPI #Sigmoid ulcers: nonspecific; biopsies pending; atypical appearing for Crohn's Will follow with you
[2018-10-21] MEDS: MORPHINE IV PRN ×2 (02:28→22:10)
[2018-10-21] MEDS: NS 1,000 ML IV SCH ×2 (04:12→16:09)
[2018-10-21 06:15] LABS: BASO# 0.03 X1000 (0.0-0.2); BASO% 0.4 % (0.0-0.8); EOS# 0.56 X1000 (0.0-0.7); EOS% 7.9 % (0.0-10.0); HEMATOCRIT 39.3 % (42.0-52.0); HEMOGLOBIN 13.2 g/dL (14.0-18.0); IMM GRAN# 0.03 X1000 (0.0-0.04); IMM GRAN% 0.4 % (0.0-0.5); LYMPH% 14.1 % (20.5-51.1); MCH 28.4 PG (27-31); MCHC 33.6 g/dL (33-37); MCV 84.5 FL (81-99); MONO# 0.87 X1000 (0.11-0.59); MONO% 12.2 % (1.7-9.3); MPV 8.5 FL (7.4-10.4); NEUT# 4.62 X1000 (1.4-6.5); PLT 319 X1000 (130-400); RBC 4.65 XMIL (4.7-6.1); RDW 12.4 % (11.5-14.5); WBC 7.11 X1000 (4.8-10.8)
[2018-10-21 06:20] LABS: AGAP 12; ALB/GLOB RATIO 1.1; ALKALINE PHOSPHATASE 106 U/L (32-122); BUN 3 mg/dL (8-22); CALCIUM 8.2 mg/dL (8.8-10.2); CHLORIDE 103 mmol/L (98-107); COSMO 274; CREATININE 0.5 mg/dL (0.7-1.2); ESTIMATED GFR > 60; GLUCOSE 96 mg/dL (70-104); GOT 18 U/L (10-34); GPT 17 U/L (10-44); POTASSIUM 4.2 mmol/L (3.5-5.1); SODIUM 139 mmol/L (136-145); TCO2 24 mmol/L (25-35); TOTAL BILIRUBIN 0.23 mg/dL (0.20-1.00); TOTAL PROTEIN 5.7 g/dL (6.3-8.3)
[2018-10-21 07:36] LABS: BANDS 2 % (0-1); EOS 6 % (1-10); LYMPHS 16 % (21-51); MONO 2 % (1-9); SEGS 74 % (42-75)
[2018-10-21] MEDS ORDERED: SODIUM CHLORIDE 0.9% 10 ML ONE (09:15)
--- NOTE | 2018-10-21 10:14 | GENERAL SURGERY PROGRESS NOTE ---
DATE: 10/21/2018 SUBJECTIVE: The patient reports some increasing abdominal pain. No nausea or vomiting. OBJECTIVE: He is afebrile. Vital signs are stable. General: He is awake, alert, and oriented x3. No acute distress. GI: Soft. Mild tenderness throughout. No rebound or guarding. ASSESSMENT AND PLAN: A 33-year-old male with pleural effusion, ascites, and carcinomatosis. He is going for diagnostic laparoscopy tomorrow by Dr. Browne. cc: Daniel Staley MD
[2018-10-21] MEDS: ROCEPHIN 1 GM in NS 50 ML IV SCH (12:13)
--- NOTE | 2018-10-21 12:28 | PROVIDER PROGRESS NOTE ---
Progress Note SUBJECTIVE: No acute overnight events. No N/V/F. Abdominal pain unchanged. +BM no rectal bleeding. Tolerating diet. OBJECTIVE: Last Vital Signs Temp 98.3 F 10/21/18 11:49 Pulse 78 10/21/18 11:49 Resp 20 10/21/18 11:49 BP 135/90 10/21/18 11:49 Pulse Ox 99 10/21/18 11:49 Height 5 ft 8 in Weight 160 lb GEN: awake, alert, NAD HEENT: anicteric, MMM NECK: supple, no jvd CV: RRR, no murmurs PULM: CTAB ABD: distended, NT, ND, NABS EXT: no cce NEURO: nonfocal LABS 10/21/18 10/21/18 05:45 05:45 WBC 7.11 Hgb 13.2 L Plt Count 319 Sodium 139 Potassium 4.2 Chloride 103 Carbon Dioxide 24 L BUN 3 L Creatinine 0.5 L Total Bilirubin 0.23 AST 18 ALT 17 Alkaline Phosphatase 106 Total Protein 5.7 L Albumin 3.0 L EGD/Colonoscopy 10/19 IMPRESSION: 1. Hiatal hernia. 2. Gastritis, biopsied. 3. Sigmoid ulcers, biopsied. 4. Diverticulosis. 5. Internal hemorrhoids. A/P: Mr. Edwardo Maharaj is a 33 year old man who presented with abdominal pain found to have low SAAG, high PMN ascites with imaging showing pleural effusions and peritoneal carcinomatosis. Elevated CEA. Normal CA19-9, AFP. EGD showed gastritis (biopsied), non-specific sigmoid ulcers (biopsied), hiatal hernia, diverticulosis, and hemorrhoids. However, no etiology of ascites found. #Ascites with SBP: on CTX; surgery following - planning on diagnostic laparoscopy given concern for malignancy vs TB tomorrow - recommend placing PPD - final ascites culture pending - NPO after MN #Elevated CEA: concerning for malignancy #Gastritis: path pending: continue PPI #Sigmoid ulcers: nonspecific; biopsies pending; atypical appearing for Crohn's Will follow with you
--- NOTE | 2018-10-21 12:45 | PROGRESS NOTE ---
DATE: 10/21/2018 SUBJECTIVE: The patient reports feeling fine. Abdominal pain is still there, but definitely under control. No other complaints noted. OBJECTIVE: Vital Signs: Temperature 98.3 degrees, heart rate 78, respiratory rate 20, blood pressure 135/90, O2 saturation 99% on room air. General examination: This is a 33-year-old male, lying in bed, in no acute distress. Cardiovascular: S1, S2 heard. No murmurs, gallops, or rubs. Regular rate and rhythm. Respiratory: Clear bilaterally to auscultation. No work of breathing or using accessory muscles. Abdomen: Soft. A little bit tender to palpation in the left lower quadrant, but there are no signs of peritoneal irritation. Mildly distended. Extremities: No clubbing, cyanosis, or edema. Peripheral pulses present in both legs. Neurological: Patient alert and oriented x3. Moves 4 extremities. LABORATORY DATA: Reviewed. ASSESSMENT AND PLAN: 1. Abdominal pain with ascites. Suspected carcinomatosis. Plan from General Surgery is to do exploratory laparoscopy tomorrow. We will see what it shows. So far, all the workup that we have done shows elevated CEA concerning for malignancy, and the EGD shows gastritis with sigmoid ulcer that has been biopsied. So, we will see what that procedure shows tomorrow. 2. Spontaneous bacterial peritonitis. Patient is on ceftriaxone. We will continue with the same management. cc: Zoltan Santana MD
[2018-10-21] MEDS: PROTONIX IV SCH (16:10)
[2018-10-22] MEDS: MORPHINE IV PRN ×4 (06:15→21:36)
[2018-10-22] MEDS: NS 1,000 ML IV SCH ×2 (06:16→17:33)
[2018-10-22 06:45] LABS: AGAP 14; ALB/GLOB RATIO 0.9; ALBUMIN 3.1 g/dL (3.5-5.0); ALKALINE PHOSPHATASE 103 U/L (32-122); BUN 2 mg/dL (8-22); CALCIUM 8.8 mg/dL (8.8-10.2); CHLORIDE 103 mmol/L (98-107); COSMO 282; CREATININE 0.5 mg/dL (0.7-1.2); ESTIMATED GFR > 60; GLUCOSE 108 mg/dL (70-104); GOT 21 U/L (10-34); GPT 17 U/L (10-44); POTASSIUM 4.2 mmol/L (3.5-5.1); SODIUM 143 mmol/L (136-145); TCO2 26 mmol/L (25-35); TOTAL BILIRUBIN 0.24 mg/dL (0.20-1.00); TOTAL PROTEIN 6.4 g/dL (6.3-8.3)
[2018-10-22] MEDS ORDERED: SODIUM CHLORIDE 0.9% 10 ML ONE (09:25)
--- NOTE | 2018-10-22 10:08 | HEMO/ONC PROGRESS NOTE ---
DATE: 10/22/2018 SUBJECTIVE: The patient continues to report some abdominal pain. The patient going for laparotomy today, this morning. OBJECTIVE: Vital Signs: Temperature 97.8 degrees, heart rate 67, respiratory rate 16, blood pressure is 135/95, saturating 96% on room air. General: Patient is awake, lying in bed, and no acute distress noted. HEENT: Anicteric. Mucous membranes are moist. Cardiovascular: S1, S2. Regular rate and rhythm. Chest: Bilateral breath sounds clear to auscultation. Abdomen: Soft, mildly tender. Bowel sounds present in all 4 quadrants. Neurologic: Alert and oriented x3. No focal deficits noted. LABORATORY DATA: Potassium 4.2, BUN 2, creatinine 0.5. ASSESSMENT AND PLAN: 1. Possible carcinomatosis: Patient going for laparoscopy. We will make further recommendations once we get further information. 2. Abdominal pain. Continue recommendations by primary medical team and Gastroenterology. Plan of care discussed with Dr. Najera. Dictated by ZAN Hernandez for Willi Najera MD Patient seen and examined. As above. Plans for diagnostic laparoscopy. We will follow with you. Willi Najera M.D. cc: ZAN Hernandez MD MTDD
--- NOTE | 2018-10-22 10:42 | GASTROENTEROLOGY PROGRESS NOTE ---
DATE: 10/22/2018 SUBJECTIVE: He is resting in bed. He is NPO today. He is going for laparoscopy today with Dr. Browne. OBJECTIVE: Vital Signs: Temperature 97.8 degrees, pulse of 69, respiratory 16, blood pressure 130/95, saturating 96% on room air. General Appearance: Moderately nourished, lying in bed, in no acute distress. HEENT: No pallor. No icterus. Neck is supple. Abdomen: Mild discomfort in the periumbilical region. No rebound or guarding. Extremities: No cyanosis or clubbing. Neurologic: Alert, awake, oriented. LABS: CEA 19-9 is 1. His CEA was high at 10.3. Sodium 140, potassium 4.2, chloride 103, bicarb 26, anion gap 14, BUN of 2, creatinine 0.5, glucose of 108, calcium is 8.8, total bilirubin is 0.34, AST 21, ALT 17, alkaline phosphatase 103, total protein 6.4, albumin 3.1. AFB smear is negative from the ascitic fluid. The fluid studies show white cells of 1816, polymorphs of 120, monos 79% and albumin of 2.2. SAG is less than 1.1. IMPRESSION AND PLAN: 1. Abdominal pain is improving. 2. Question of peritoneal carcinomatosis, elevated CEA. EGD and colon showed evidence of gastritis and nonspecific sigmoid ulcers. These are biopsied. Will follow up the biopsy results. 3. Patient has hiatal hernia, diverticulosis and hemorrhoids. We will continue on reflux and lifestyle changes. Will continue on a high fiber diet once able to start orally. Today, he is scheduled for a diagnostic laparoscopy given concern of malignancy versus TOTAL BILIRUBIN. 4. GI prophylaxis with PPIs. 5. Ascites, aware. We will follow up on the laparoscopy results. Further recommendations to follow. cc: MD Valdo Wilkinson MD
[2018-10-22] MEDS: ROCEPHIN 1 GM in NS 50 ML IV SCH (11:45)
--- NOTE | 2018-10-22 13:35 | PROGRESS NOTE ---
DATE: 10/22/2018 SUBJECTIVE: The patient reports feeling fine. Mild abdominal pain well controlled with pain medication. OBJECTIVE: Vital Signs: Temperature 98.2 degrees, heart rate 68, respiratory rate 16, blood pressure 143/92, O2 saturation 97% on room air. General: This is a 33-year-old, male, lying in bed, in no acute distress. Cardiovascular: S2 heard. No murmurs, gallops, or rubs. Regular rate and rhythm. Respiratory: Clear bilaterally to auscultation. No work of breathing or using accessory muscles. Abdomen: Soft, a little bit tender to palpation in the left lower quadrant but there are no signs of peritoneal irritation. Mildly distended. Extremities: No clubbing, cyanosis, or edema. Peripheral pulses present in both legs. Neurological: The patient alert and oriented x3. Moves 4 extremities. LABORATORY DATA: Reviewed. ASSESSMENT AND PLAN: 1. Abdominal pain with ascites, suspected carcinomatosis. Plan from General Surgery initially was to do exploratory laparoscopy today but it was changed to tomorrow. Gastroenterology is also following this patient. At this point, our concerns are malignancy versus peritoneal TB. In any case, we will see what the results of the procedure shows. 2. Spontaneous bacterial peritonitis. The patient is on ceftriaxone. We will continue with the same management. cc: Zoltan Santana MD MTDSeth
[2018-10-22] MEDS: PROTONIX IV SCH (17:33)
--- NOTE | 2018-10-22 17:50 | PROGRESS NOTE ---
DATE: 10/22/2018 SUBJECTIVE: No events overnight, still has some abdominal discomfort. No nausea, vomiting, bowel functioning. He had colonoscopy performed on Monday as well as an EGD showed no obvious neoplasms. I reviewed his vital signs. On exam he is alert. Ambulating about the room. Cardiovascular normal rate. Abdomen is mildly distended but soft, diffusely tender but no peritonitis. I reviewed his labs. Hematocrit been stable, white count is normal, creatinine is normal, LFTs are normal. CEA is elevated 10.3. CA-19-9 is normal at 1. ASSESSMENT/PLAN: A 33-year-old male with apparent malignant ascites and carcinomatosis. Endoscopic evaluation been unrevealing, CEA is elevated. We discussed risks and benefits via family member who serves as foreign language interpreter and the patient also understands Citizen Of [place], the need for diagnostic laparoscopy. Will go the operating room tomorrow for this. We discussed possibility of a nondiagnostic procedure and the need for further procedures. He understands and consents. cc: aJnet Browne MD
[2018-10-23] MEDS: MORPHINE IV PRN ×4 (02:32→21:37)
[2018-10-23 06:34] LABS: AGAP 12; ALB/GLOB RATIO 0.9; ALBUMIN 2.9 g/dL (3.5-5.0); ALKALINE PHOSPHATASE 100 U/L (32-122); BUN 2 mg/dL (8-22); CALCIUM 8.6 mg/dL (8.8-10.2); CHLORIDE 104 mmol/L (98-107); COSMO 280; CREATININE 0.4 mg/dL (0.7-1.2); ESTIMATED GFR > 60; GLUCOSE 109 mg/dL (70-104); GOT 18 U/L (10-34); GPT 16 U/L (10-44); SODIUM 142 mmol/L (136-145); TCO2 26 mmol/L (25-35); TOTAL BILIRUBIN 0.23 mg/dL (0.20-1.00); TOTAL PROTEIN 6.2 g/dL (6.3-8.3)
[2018-10-23 06:46] LABS: BASO# 0.02 X1000 (0.0-0.2); BASO% 0.3 % (0.0-0.8); EOS% 7.9 % (0.0-10.0); HEMATOCRIT 40.7 % (42.0-52.0); HEMOGLOBIN 13.6 g/dL (14.0-18.0); IMM GRAN# 0.02 X1000 (0.0-0.04); IMM GRAN% 0.3 % (0.0-0.5); LYMPH# 1.15 X1000 (1.2-3.4); LYMPH% 15.1 % (20.5-51.1); MCH 27.6 PG (27-31); MCHC 33.4 g/dL (33-37); MCV 82.6 FL (81-99); MONO# 1.04 X1000 (0.11-0.59); MONO% 13.7 % (1.7-9.3); MPV 8.6 FL (7.4-10.4); NEUT# 4.77 X1000 (1.4-6.5); NEUT% 62.7 % (42.2-75.2); PLT 347 X1000 (130-400); RBC 4.93 XMIL (4.7-6.1); RDW 12.8 % (11.5-14.5)
[2018-10-23] MEDS: NS 1,000 ML IV SCH ×3 (07:21→21:38)
[2018-10-23] MEDS ORDERED: DIPRIVAN 1% ONE ×2 (08:39→10:47)
[2018-10-23] MEDS ORDERED: NORCURON ONE (08:51)
[2018-10-23] MEDS ORDERED: QUELICIN (DOSE) ONE ×2 (08:51→10:47)
[2018-10-23] MEDS ORDERED: SODIUM CHLORIDE 0.9% 10 ML ONE (08:51)
[2018-10-23] MEDS ORDERED: FENTANYL ONE ×2 (08:52→10:47)
--- NOTE | 2018-10-23 09:20 | HEMO/ONC PROGRESS NOTE ---
DATE: 10/23/2018 SUBJECTIVE: Patient's abdominal pain continues to be controlled. Continues to be very mild. The patient has no other new complaints. OBJECTIVE: Vital Signs: Temperature 97.9 degrees heart rate 82, respiratory rate 17, blood pressure 136/89, satting 97% on room air. General: Patient is awake, lying in bed, no acute distress noted. HEENT: Anicteric. Mucous membranes dry. Cardiovascular system: S1, S2. Regular rate and rhythm. Chest: Bilateral breath sounds. Clear to auscultation. Abdomen: Soft, mildly tender. Bowel sounds present in all 4 quadrants. Neurologic: Alert and oriented x3. No focal deficits noted. LABORATORY DATA: White blood cell count 7.60, hemoglobin 13.6, hematocrit 40.7, platelets are 347. Potassium 4.0 BUN 2, creatinine 0.4. ASSESSMENT AND PLAN: 1. Possible carcinomatosis. The patient is scheduled for abdominal laparoscopy today. Once pathology results are back, we will make further recommendations. Continue to monitor. 2. Abdominal pain. Continue recommendations per primary medical team and Gastroenterology. Plan of care discussed with Dr. Najera. Dictated by ZAN Hernandez for Willi Najera MD [facility]
[2018-10-23] MEDS ORDERED: LR 1,000 ML ONE (10:30)
[2018-10-23] MEDS ORDERED: SENSORCAINE 0.5%-EPI 1:200,000 ONE (10:30)
[2018-10-23] MEDS ORDERED: XYLOCAINE-MPF 2% ONE (10:46)
[2018-10-23] MEDS ORDERED: ROBINUL ONE ×2 (10:46→10:50)
[2018-10-23] MEDS ORDERED: DECADRON ONE (10:46)
[2018-10-23] MEDS ORDERED: ZOFRAN ONE (10:46)
[2018-10-23] MEDS: SODIUM CHLORIDE 0.9% INJ ONE (10:50)
[2018-10-23] MEDS: PROTONIX IV SCH (10:50)
[2018-10-23] MEDS ORDERED: ZEMURON ONE (10:52)
[2018-10-23] MEDS ORDERED: VERSED ONE (11:10)
[2018-10-23] MEDS: ROCEPHIN 1 GM in NS 50 ML IV SCH (11:35)
[2018-10-23] MEDS ORDERED: NEOSTIGMINE ONE (11:48)
[2018-10-23] MEDS ORDERED: ZOFRAN IV PRN (17:00)
--- NOTE | 2018-10-23 17:11 | PROGRESS NOTE ---
DATE: 10/23/2018 SUBJECTIVE: The patient is resting comfortably in bed. No acute events noted overnight. OBJECTIVE: Vital Signs: Temperature 98.6, blood pressure 130/86, heart rate 80, respirations 18. O2 sats 97% on room air. General: This is a young male lying in bed in no acute distress. Heart: S1, S2 normal. Lungs: Clear to auscultation bilaterally. Abdomen: Positive bowel sounds. Soft, nontender, nondistended. Extremities: No edema, no cyanosis. Neurologic: The patient is alert and oriented x 3. LABS: Hemoglobin 13, hematocrit 40, platelets 347,000. Sodium 142, potassium 4, chloride 104, CO2 26, BUN 2, creatinine 0.4, glucose 109. Albumin 2.9. ASSESSMENT AND PLAN: 1. Suspected carcinomatosis. The patient is scheduled for surgery today. Will await the outcome of the procedure. Further management as per Oncology and General Surgery. 2. GI prophylaxis. Continue on Protonix. 3. DVT prophylaxis. Continue with SCDs. cc: Susana Donato MD [facility]
--- NOTE | 2018-10-23 17:28 | OPERATIVE NOTE ---
PROCEDURE DATE: 10/23/2018 PREOPERATIVE DIAGNOSIS: Abdominal pain with possible carcinomatosis. POSTOPERATIVE DIAGNOSIS: Abdominal pain with possible carcinomatosis. PROCEDURE PERFORMED: Diagnostic laparoscopy with peritoneal biopsy. ANESTHESIA: General. SPECIMENS: 1. Peritoneal biopsies. 2. Peritoneal fluid for cytology. INDICATIONS FOR PROCEDURE: A 33-year-old gentleman who presented with abdominal discomfort. CT scan was suggestive of malignant ascites with carcinomatosis. He has had an endoscopy that showed no etiology. CA is significantly elevated. He is also being worked up for possible tuberculosis OPERATIVE FINDINGS: Dense adhesions in the lower quadrant of the abdomen. There was extensive miliary studding of white plaque implants along the peritoneum, which became much more dense in the lower quadrants of his abdomen. There was hemorrhagic appearing ascites concerning for carcinomatosis, possible miliary tuberculosis. OPERATIVE NOTE: Risks, benefits, and alternatives discussed, the patient consented to the procedure. He was seen preoperatively and surgical site was confirmed. He was taken to the operating room and placed in the supine position. General anesthesia was induced without complication. All bony prominences were padded. The abdomen was prepped with chlorhexidine solution and draped in the usual fashion. After a time out, we made a supraumbilical midline incision, carried this down to the fascia, incised the fascia, incised the abdomen. A kc of hemorrhagic ascites was noted. We then placed an Sindi trocar under direct visualization. There was intra-abdominal adhesions, but we were able to create a window and place a trocar carefully under direct visualization. We insufflated. His abdomen was quite rigid. There was apparent palpable mass in the lower quadrant that was consistent with omental caking. There was a window in the right upper quadrant that we were able to gain access. Placed another 5 mm trocar under direct visualization. There were extensive miliary implants along the diaphragm, lateral quadrants, lateral abdominal wall, falciform ligament. We took numerous biopsies of these and collected good specimen. We aspirated the fluid and sent this for cytology. We inspected back at our entry site and confirmed there was no injury here. The small bowel was extensively matted inferiorly, and visualization was very limited. Given this, we felt we had adequate specimen for diagnostic purposes. We desufflated the abdomen after removing the trocar under direct visualization and also noting hemostasis. We closed the fascia with interrupted 0 Vicryl sutures. Skin was closed with surgical clips. Dressing was applied. Counts correct. He was transferred to recovery. I spoke to the family. cc: Janet Browne MD
[2018-10-23] MEDS: PERIDEX MT SCH (21:37)
[2018-10-24] MEDS: MORPHINE IV PRN ×3 (02:57→13:11)
[2018-10-24 05:44] LABS: BASO# 0.02 X1000 (0.0-0.2); BASO% 0.2 % (0.0-0.8); EOS# 0.08 X1000 (0.0-0.7); EOS% 0.8 % (0.0-10.0); HEMATOCRIT 38.7 % (42.0-52.0); IMM GRAN# 0.04 X1000 (0.0-0.04); IMM GRAN% 0.4 % (0.0-0.5); LYMPH# 1.04 X1000 (1.2-3.4); MCH 27.8 PG (27-31); MCHC 33.6 g/dL (33-37); MCV 82.7 FL (81-99); MONO# 1.32 X1000 (0.11-0.59); MONO% 12.7 % (1.7-9.3); MPV 8.6 FL (7.4-10.4); NEUT# 7.93 X1000 (1.4-6.5); NEUT% 75.9 % (42.2-75.2); PLT 331 X1000 (130-400); RBC 4.68 XMIL (4.7-6.1); RDW 12.8 % (11.5-14.5); WBC 10.43 X1000 (4.8-10.8)
[2018-10-24 06:23] LABS: AGAP 10; ALKALINE PHOSPHATASE 91 U/L (32-122); BUN 5 mg/dL (8-22); CALCIUM 8.8 mg/dL (8.8-10.2); CHLORIDE 104 mmol/L (98-107); COSMO 284; CREATININE 0.5 mg/dL (0.7-1.2); ESTIMATED GFR > 60; GLUCOSE 123 mg/dL (70-104); GOT 21 U/L (10-34); GPT 15 U/L (10-44); POTASSIUM 4.4 mmol/L (3.5-5.1); SODIUM 143 mmol/L (136-145); TCO2 29 mmol/L (25-35); TOTAL PROTEIN 6.1 g/dL (6.3-8.3)
[2018-10-24] MEDS: SODIUM CHLORIDE 0.9% INJ SCH (08:00)
[2018-10-24] MEDS: PROTONIX IV SCH (08:00)
[2018-10-24] MEDS: PERIDEX MT SCH ×2 (08:00→20:54)
--- NOTE | 2018-10-24 08:33 | HEMO/ONC PROGRESS NOTE ---
DATE: 10/24/2018 SUBJECTIVE: The patient continues to have some abdominal pain. The patient notes this pain at the surgical site. No new complaints. OBJECTIVE: Vital Signs: Temperature of 98.0 degrees, heart rate 69, respiratory rate 14, blood pressure 139/91, saturating 90% on room air. General: The patient is awake, lying in bed. No acute distress noted. HEENT: Anicteric. Pupils PERRLA. Mucous membranes appear to be moist. Cardiovascular: S1, S2. Regular rate and rhythm. Chest: Bilateral breath sounds clear to auscultation. Abdomen: Soft. Tender at the surgical site. Dressing in place. Bowel sounds present. Neurologic: Alert and oriented x3. No focal deficits noted. Laboratory Data: White cell count is 10.43, hemoglobin 13.0, hematocrit 38.7, platelets are 331,000. Potassium 4.4, BUN 5, creatinine 0.5. ASSESSMENT AND PLAN: 1. Possible carcinomatosis: Patient had abdominal laparoscopy yesterday. Pathology results are pending. Surgery revealed possible carcinomatosis versus miliary tuberculosis. Once we get the pathology results, we will make further recommendations. Continue to monitor. 2. Abdominal pain.: Continue recommendations per primary medical team and gastroenterology. Dictated by ZAN Hernandez for Willi Najera MD cc: ZAN Hernandez MD [facility]
--- NOTE | 2018-10-24 10:42 | PROVIDER PROGRESS NOTE ---
Progress Note SUBJECTIVE: Patient underwent diagnostic laparoscopy yesterday with biopsy of peritoneum and ascitic fluid sent for cytology. No acute overnight events. No N/V/F, CP, SOB. Minimal abdominal pain. No BM today. OBJECTIVE: Last Vital Signs Temp 98.0 F 10/24/18 07:40 Pulse 73 10/24/18 08:32 Resp 15 10/24/18 08:32 BP 139/91 10/24/18 07:40 Pulse Ox 94 L 10/24/18 08:32 Height 5 ft 8 in Weight 160 lb GEN: awake, alert, NAD HEENT: anicteric, MMM NECK: supple, no JVD CV: RRR, no murmurs PULM: CTAB, no wheezing ABD: distended, incisions with dressing c/d/i, hypoactive BS, minimally TTP throughout EXT: no cce NEURO: nonfocal LABS: 10/24/18 10/24/18 05:19 05:19 WBC 10.43 Hgb 13.0 L Plt Count 331 Sodium 143 Potassium 4.4 Chloride 104 Carbon Dioxide 29 BUN 5 L D Creatinine 0.5 L Glucose 123 H Total Bilirubin 0.20 AST 21 ALT 15 Alkaline Phosphatase 91 Total Protein 6.1 L Albumin 3.0 L Ascites fluid 10/18 NGTD PROCEDURE DATE: 10/23/2018 PREOPERATIVE DIAGNOSIS: Abdominal pain with possible carcinomatosis. POSTOPERATIVE DIAGNOSIS: Abdominal pain with possible carcinomatosis. PROCEDURE PERFORMED: Diagnostic laparoscopy with peritoneal biopsy. ANESTHESIA: General. SPECIMENS: 1. Peritoneal biopsies. 2. Peritoneal fluid for cytology. A/P: Mr. Edwardo Maharaj is a 33 year old man who presented with abdominal pain found to have low SAAG, high PMN ascites with imaging showing pleural effusions and peritoneal carcinomatosis. Elevated CEA. Normal CA19-9, AFP. EGD showed gastritis (biopsied), non-specific sigmoid ulcers (biopsied), hiatal hernia, diverticulosis, and hemorrhoids. However, no etiology of ascites found. He is post-op day 1 from diagnostic laparoscopy. #Ascites with SBP: on CTX; surgery following - s/p diagnostic laparoscopy; pathology and cytology pending; post-op mgmt as per surgery - recommend placing PPD - ascites cx NGTD - continue CTX for total of 5-7 days then stop #Elevated CEA: concerning for malignancy; s/p EGD/colonoscopy unrevealing for etiology; oncology following #Gastritis: path pending: continue PPI #Sigmoid ulcers: nonspecific; biopsies pending; atypical appearing for Crohn's Will follow with you
[2018-10-24] MEDS: NS 1,000 ML IV SCH ×2 (11:28→20:54)
[2018-10-24] MEDS: ROCEPHIN 1 GM in NS 50 ML IV SCH (11:28)
--- NOTE | 2018-10-24 11:32 | PROGRESS NOTE ---
DATE: 10/24/2018 SUBJECTIVE: The patient is resting comfortably in bed. He has no complaints. He states that his pain is under good control. OBJECTIVE: Vital Signs: Temperature 98 degrees, blood pressure 138/91, heart rate 69, respirations 14, O2 saturation 99% on room air. General: This is a young male lying in bed in no acute distress. Heart: S1, S2 normal. Regular rate and rhythm. Lungs: Clear to auscultation bilaterally. No wheezing. No rales. No rhonchi. Abdomen: Positive bowel sounds. Soft, nontender, nondistended. Extremities: No edema. No cyanosis. Neurologic: The patient is alert and oriented x3. LABORATORIES: Reviewed. ASSESSMENT AND PLAN: 1. Suspected carcinomatosis. The patient underwent a diagnostic laparoscopy with peritoneal biopsy yesterday. We will await the results of this diagnostic study. Further management as per Oncology, General Surgery and Gastroenterology. cc: Susana Donato MD [facility]
--- NOTE | 2018-10-24 14:38 | GENERAL SURGERY PROGRESS NOTE ---
DATE: 10/24/2018 SUBJECTIVE: He is tolerating clear liquids. No events overnight. OBJECTIVE: Abdomen is soft. His dressings are clean. No fevers. No tachycardia. ASSESSMENT AND PLAN: I have reviewed his labs. I have discussed the pathology from his biopsies with Dr. Hammer. Unclear etiology. Waiting on further staining. We will continue to follow along. cc: Janet Browne MD
[2018-10-24] MEDS: PERCOCET-5 PO PRN (18:02)
[2018-10-24] MEDS: DULCOLAX PO SCH (20:54)
[2018-10-25] MEDS: PERCOCET-5 PO PRN ×4 (00:48→17:32)
[2018-10-25 06:16] LABS: BASO# 0.03 X1000 (0.0-0.2); BASO% 0.3 % (0.0-0.8); EOS# 0.48 X1000 (0.0-0.7); EOS% 5.1 % (0.0-10.0); HEMATOCRIT 39.1 % (42.0-52.0); IMM GRAN# 0.02 X1000 (0.0-0.04); IMM GRAN% 0.2 % (0.0-0.5); LYMPH# 1.05 X1000 (1.2-3.4); LYMPH% 11.3 % (20.5-51.1); MCH 27.8 PG (27-31); MCHC 33.2 g/dL (33-37); MCV 83.5 FL (81-99); MONO# 1.09 X1000 (0.11-0.59); MONO% 11.7 % (1.7-9.3); MPV 8.7 FL (7.4-10.4); NEUT# 6.66 X1000 (1.4-6.5); NEUT% 71.4 % (42.2-75.2); PLT 322 X1000 (130-400); RBC 4.68 XMIL (4.7-6.1); WBC 9.33 X1000 (4.8-10.8)
[2018-10-25 06:29] LABS: AGAP 13; ALB/GLOB RATIO 0.9; ALKALINE PHOSPHATASE 102 U/L (32-122); BUN 6 mg/dL (8-22); CALCIUM 8.7 mg/dL (8.8-10.2); CHLORIDE 101 mmol/L (98-107); COSMO 277; CREATININE 0.6 mg/dL (0.7-1.2); ESTIMATED GFR > 60; GLUCOSE 101 mg/dL (70-104); GOT 19 U/L (10-34); GPT 15 U/L (10-44); POTASSIUM 4.1 mmol/L (3.5-5.1); SODIUM 140 mmol/L (136-145); TCO2 26 mmol/L (25-35); TOTAL BILIRUBIN 0.23 mg/dL (0.20-1.00); TOTAL PROTEIN 6.3 g/dL (6.3-8.3)
[2018-10-25] MEDS: SODIUM CHLORIDE 0.9% INJ SCH (08:45)
[2018-10-25] MEDS: PERIDEX MT SCH ×2 (08:45→22:06)
[2018-10-25] MEDS: PROTONIX IV SCH (08:45)
--- NOTE | 2018-10-25 08:58 | HEMO/ONC PROGRESS NOTE ---
DATE: 10/25/2018 SUBJECTIVE: The patient is feeling well at this time. No new complaints. OBJECTIVE: Vital Signs: Temperature 97.7 degrees, heart rate 76, respiratory rate 18, blood pressure 144/86, and 98% on room air. General: Patient is awake, lying in bed, no acute distress noted. HEENT: Anicteric. Pupils PERRLA. Mucous membranes moist. Cardiovascular: S1, S2. Regular rate and rhythm. Chest: Bilateral breath sounds. Clear to auscultation. Abdomen: Soft, tender at surgical site. Dressing in place. Bowel sounds present. Neurologic: Alert and oriented x3. No focal deficits noted. LABORATORY DATA: White blood cell count 9.33, hemoglobin 13.2, hematocrit 39.1, platelets are 322, potassium 4.1, BUN 6, creatinine 0.6. ASSESSMENT AND PLAN: 1. Possible carcinomatosis: Pathology results pending at this time. Will make further recommendations as results are back. 2. Abdominal pain. Continue recommendations per primary medical team and Gastroenterology. Pain is well under control at this time. 3. Supportive care: Once the patient is able to tolerate further diet, the patient will need protein shakes three times a day. Dictated by ZAN Hernandez for Willi Najera MD Patient seen and examined. Preliminary result from laparoscopic biopsy reveals carcinoma. Immunostains are still pending. Origin of the cancer is unclear. Results discussed with family. Follow up on final results. Willi Najera M.D. cc: ZAN Hernandez MD [facility]
--- NOTE | 2018-10-25 09:30 | Diag Imaging Result Doc PS360 ---
EXAM: US SCROTUM 10/25/2018 HISTORY: evaluate for testicular mass TECHNIQUE: Scrotal ultrasound COMMENT: There is color Doppler flow bilaterally. There is a cyst in the left epididymal head measuring 7 mm in diameter. There is a smaller cyst measuring 3 mm. There are no testicular masses. There is a 3 mm cyst in the right epididymal head. There are small bilateral hydroceles. IMPRESSION: Bilateral epididymal cysts. No evidence of testicular mass or torsion. Electronically signed by Denis Baker 10/25/2018 9:28 AM
[2018-10-25] MEDS: COLACE PO SCH ×2 (10:20→22:06)
[2018-10-25] MEDS: MILK OF MAGNESIA PO SCH ×2 (11:33→22:06)
[2018-10-25] MEDS: MIRALAX PO SCH ×2 (11:33→22:06)
[2018-10-25] MEDS: ROCEPHIN 1 GM in NS 50 ML IV SCH (11:37)
--- NOTE | 2018-10-25 15:27 | PROGRESS NOTE ---
DATE: 10/25/2018 SUBJECTIVE: The patient is resting comfortably in bed. He complains of constipation. OBJECTIVE: Vital Signs: Temperature 97 degrees, blood pressure 145/98, heart rate 77, respirations 18, and O2 saturations 97% on room air. General: This is a young male lying in bed in no acute distress. Heart: S1, S2 normal. Regular rate and rhythm. Lungs: Clear to auscultation bilaterally. Abdomen: Positive bowel sounds. Soft, nontender, and nondistended. Extremities: No edema. No cyanosis. Neurologic: The patient is alert and oriented x4. LABORATORY: White blood cell count 9.3, hemoglobin 13, hematocrit 39, and platelets 322,000. Sodium 140, potassium 4.1, chloride 101, CO2 26, BUN 6, creatinine 0.6 and glucose 101. ASSESSMENT AND PLAN: 1. Carcinomatosis. The pathology results are currently pending. There was also a question of miliary TB. The QuantiFERON study came back negative. 2. Constipation. We will start the patient on MiraLAX and Colace. cc: Susana Donato MD [facility]TD[facility]
--- NOTE | 2018-10-25 17:31 | GENERAL SURGERY PROGRESS NOTE ---
DATE: 10/25/2018 SUBJECTIVE: No events. OBJECTIVE: Abdomen is soft. No fevers. No tachycardia. Pathology is indeterminate. I do not feel scrotal mass. PLAN: We will check a scrotal ultrasound to be sure. cc: Janet Browne MD
[2018-10-25] MEDS: DULCOLAX PO SCH (22:06)
[2018-10-26] MEDS: PERCOCET-5 PO PRN ×3 (01:15→17:20)
[2018-10-26] MEDS: MORPHINE IV PRN (02:26)
[2018-10-26] MEDS: NS 1,000 ML IV SCH ×2 (05:35→09:46)
[2018-10-26 06:37] LABS: BASO# 0.02 X1000 (0.0-0.2); BASO% 0.2 % (0.0-0.8); EOS# 0.15 X1000 (0.0-0.7); EOS% 1.3 % (0.0-10.0); HEMATOCRIT 38.4 % (42.0-52.0); HEMOGLOBIN 12.8 g/dL (14.0-18.0); IMM GRAN# 0.03 X1000 (0.0-0.04); IMM GRAN% 0.3 % (0.0-0.5); LYMPH% 7.1 % (20.5-51.1); MCH 27.8 PG (27-31); MCHC 33.3 g/dL (33-37); MCV 83.3 FL (81-99); MONO# 1.09 X1000 (0.11-0.59); MONO% 9.6 % (1.7-9.3); NEUT# 9.23 X1000 (1.4-6.5); NEUT% 81.5 % (42.2-75.2); PLT 290 X1000 (130-400); RBC 4.61 XMIL (4.7-6.1); RDW 12.7 % (11.5-14.5); WBC 11.32 X1000 (4.8-10.8)
[2018-10-26 06:53] LABS: AGAP 13; BUN 7 mg/dL (8-22); CALCIUM 8.7 mg/dL (8.8-10.2); CHLORIDE 98 mmol/L (98-107); COSMO 277; CREATININE 0.4 mg/dL (0.7-1.2); ESTIMATED GFR > 60; GLUCOSE 129 mg/dL (70-104); POTASSIUM 3.5 mmol/L (3.5-5.1); SODIUM 139 mmol/L (136-145); TCO2 28 mmol/L (25-35)
--- NOTE | 2018-10-26 09:11 | GENERAL SURGERY PROGRESS NOTE ---
DATE: 10/26/2018 SUBJECTIVE: The patient seems to be doing okay. He has got a little bit of pain. Pathology is still pending on the exact etiology of the carcinomatosis. Scrotal ultrasound ordered yesterday was normal, but at this point, nothing much to add. We will just follow up with the pathology. cc: Richard Serrano MD
[2018-10-26] MEDS: PERIDEX MT SCH ×2 (09:48→23:25)
[2018-10-26] MEDS: PROTONIX IV SCH (09:48)
[2018-10-26] MEDS: COLACE PO SCH ×2 (09:48→23:25)
[2018-10-26] MEDS: SODIUM CHLORIDE 0.9% INJ SCH (09:48)
[2018-10-26] MEDS: MIRALAX PO SCH ×2 (09:48→23:25)
[2018-10-26] MEDS: MILK OF MAGNESIA PO SCH ×2 (09:48→23:26)
[2018-10-26] MEDS ORDERED: LOVENOX SUBQ SCH (11:30)
[2018-10-26] MEDS: ROCEPHIN 1 GM in NS 50 ML IV SCH (12:15)
--- NOTE | 2018-10-26 13:04 | PROGRESS NOTE ---
DATE: 10/26/2018 SUBJECTIVE: The patient is resting comfortably in bed. No acute events noted overnight. OBJECTIVE: Vital Signs: Temperature 98.2 degrees, blood pressure 156/104, heart rate 75, respirations 20, and O2 saturation 97% on room air. General: This is a young male lying in bed in no acute distress. Heart: S1, S2 normal. Regular rate and rhythm. Lungs: Equal air entry bilaterally. No crackles. No rales. Abdomen: Positive bowel sounds. Soft, nontender, and nondistended. Extremities: No edema. No cyanosis. Neurologic: The patient is alert and oriented x3. LABORATORY: White blood cell count 11, hemoglobin 12, hematocrit 38, and platelets 290,000. Sodium 139, potassium 3.5, chloride 98, CO2 28, BUN 7, creatinine 0.4 and glucose 129. ASSESSMENT AND PLAN: 1. Carcinomatosis. The pathology report is currently pending. Oncology and General Surgery are following. 2. Constipation. Continue with laxative therapy. 3. Hypertension. We will start the patient on Norvasc. cc: Susana Donato MD [facility]
--- NOTE | 2018-10-26 14:05 | HEMO/ONC PROGRESS NOTE ---
DATE: 10/26/2018 SUBJECTIVE: The patient complains of some constipation. No other complaints at this time. OBJECTIVE: Vital Signs: Temperature 98.2 degrees, heart rate 75, respiratory rate 20, blood pressure 156/104, saturating 97% on room air. General: Patient is awake, lying in bed, no acute distress noted. HEENT: Anicteric. Mucous membranes appear to be moist. Cardiovascular: S1, S2. Regular rate and rhythm. Chest: Bilateral breath sounds clear to auscultation. Abdomen: Soft, tender to the surgical site, dressing in place, the wound healing nicely. Bowel sounds present. Neurologic: Alert and oriented x3. No focal deficits noted. LABORATORY DATA: White blood cell count 11.32, hemoglobin 12.8, hematocrit 38.4, platelets are 290,000. Potassium 3.5, BUN 7, creatinine 0.4. ASSESSMENT AND PLAN: 1. Possible carcinomatosis: Primary pathology results suggest carcinoma. Final pathology results still pending. Continue watch for final pathology results at this time. 2. Abdominal pain: Continue recommendations per primary medical team, Gastroenterology and Surgery. 3. Supportive care: Continue to have patient get out of bed as much as possible. Patient will continue exercises as instructed. Continue protein shakes 3 times a day. Plan of care discussed with Dr. Najera. Dictated by ZAN Hernandez for Willi Najera MD As above. Discussed with Dr. Donato. He will follow up in the clinic for final pathology in the week. Willi Najera M.D. cc: ZAN Hernandez MD [facility]
[2018-10-26] MEDS: NORVASC PO SCH (17:23)
--- NOTE | 2018-10-26 20:14 | PROVIDER PROGRESS NOTE ---
Progress Note SUBJECTIVE: No acute overnight events. Afebrile. Patient reports some nausea and abdominal discomfort. No vomiting, fever, CP, SOB. OBJECTIVE: Last Vital Signs Temp 98.0 F 10/26/18 15:42 Pulse 83 10/26/18 15:42 Resp 20 10/26/18 15:42 BP 148/97 10/26/18 15:42 Pulse Ox 97 10/26/18 15:42 Height 5 ft 8 in Weight 160 lb GEN: awake, alert, NAD HEENT: anicteric, MMM NECK: supple, no JVD CV: RRR, no murmurs PULM: CTAB, no wheezing ABD: distended, incisions with dressing c/d/i, hypoactive BS, minimally TTP throughout EXT: no cce NEURO: nonfocal LABS: 10/26/18 10/26/18 05:46 05:46 WBC 11.32 H Hgb 12.8 L Plt Count 290 Sodium 139 Potassium 3.5 Chloride 98 Carbon Dioxide 28 BUN 7 L Creatinine 0.4 L Prelim path shows carcinoma per oncology; final path pending Ascites fluid 10/18 NGTD PROCEDURE DATE: 10/23/2018 PREOPERATIVE DIAGNOSIS: Abdominal pain with possible carcinomatosis. POSTOPERATIVE DIAGNOSIS: Abdominal pain with possible carcinomatosis. PROCEDURE PERFORMED: Diagnostic laparoscopy with peritoneal biopsy. ANESTHESIA: General. SPECIMENS: 1. Peritoneal biopsies. 2. Peritoneal fluid for cytology. A/P: Mr. Edwardo Maharaj is a 33 year old man who presented with abdominal pain found to have low SAAG, high PMN ascites with imaging showing pleural effusions and peritoneal carcinomatosis s/p EGD/colonoscopy and diagnostic laparascopy with peritoneal biopsies showing carcinoma (prelim pathology). TB quantiferon neg, AFB ascites negative. EGD/colonoscopy showed gastritis (biopsied), non- specific sigmoid ulcers (biopsied), hiatal hernia, diverticulosis, and hemorrhoids. #Peritoneal carcinomatosis: 2/2 to probable carcinoma - oncology following, apprec recs - s/p diagnostic laparoscopy; post-op mgmt as per surgery #Probable malignant ascites with SBP: on CTX; cultures NGTD - ok to stop abx after 5 days of therapy - malignant ascites not responsive to diuretics #Gastritis: path pending: continue PPI #Sigmoid ulcers: nonspecific; biopsies pending; atypical appearing for Crohn's #Diverticulosis: aware #Hemorrhoids: aware Recommend removing airborne precautions since this is not TB. Will sign off. Please call with questions
[2018-10-26] MEDS: DULCOLAX PO SCH (23:25)
[2018-10-27] MEDS: NS 1,000 ML IV SCH ×3 (00:18→11:30)
[2018-10-27] MEDS: MORPHINE IV PRN (01:19)
[2018-10-27] MEDS: PERCOCET-5 PO PRN ×2 (04:03→11:28)
[2018-10-27 07:03] LABS: HEMATOCRIT 36.2 % (42.0-52.0); MCH 27.5 PG (27-31); MCHC 33.1 g/dL (33-37); MPV 8.9 FL (7.4-10.4); RBC 4.36 XMIL (4.7-6.1); RDW 12.8 % (11.5-14.5); WBC 8.98 X1000 (4.8-10.8)
[2018-10-27 08:00] LABS: AGAP 12; BUN 5 mg/dL (8-22); CALCIUM 8.2 mg/dL (8.8-10.2); CHLORIDE 100 mmol/L (98-107); COSMO 275; CREATININE 0.4 mg/dL (0.7-1.2); ESTIMATED GFR > 60; GLUCOSE 110 mg/dL (70-104); POTASSIUM 3.3 mmol/L (3.5-5.1); SODIUM 139 mmol/L (136-145); TCO2 27 mmol/L (25-35)
--- NOTE | 2018-10-27 10:56 | GENERAL SURGERY PROGRESS NOTE ---
DATE: 10/27/2018 SUBJECTIVE: Pathology is still pending. The patient otherwise seem to have been doing okay. We will follow up pathology, but no immediate surgical intervention is planned at this time. cc: Richard Serrano MD [facility]TDD
[2018-10-27] MEDS: MIRALAX PO SCH (11:11)
[2018-10-27] MEDS: ROCEPHIN 1 GM in NS 50 ML IV SCH (11:11)
[2018-10-27] MEDS: PROTONIX IV SCH (11:11)
[2018-10-27] MEDS: MILK OF MAGNESIA PO SCH (11:12)
[2018-10-27] MEDS: PERIDEX MT SCH (11:12)
[2018-10-27] MEDS: SODIUM CHLORIDE 0.9% INJ SCH (11:12)
[2018-10-27] MEDS: NORVASC PO SCH (11:12)
[2018-10-27] MEDS: COLACE PO SCH (11:20)
[2018-10-27] MEDS ORDERED: KLOR-CON PO ONE (11:53)
[2018-10-27 12:38] VITALS: BP 143/93
--- NOTE | 2018-11-19 04:34 | DISCHARGE SUMMARY ---
ADMISSION DATE: 10/17/2018 DISCHARGE DATE: 10/27/2018 FINAL DISCHARGE DIAGNOSIS: 1. Carcinomatosis. 2. Constipation. 3. Hypertension. 4. Gastritis. 5. Diverticulosis. 6. Sigmoid ulcers. CONSULTATIONS: 1. GI consultation with Dr. Blancas. 2. General Surgery consultation with Dr. Browne. 3. Oncology consultation with Dr. Najera. PROCEDURES: 1. EGD with biopsy and colonoscopy with biopsy performed on 10/19/2018 which revealed gastritis, sigmoid ulcers, diverticulosis and internal hemorrhoids. 2. Diagnostic laparoscopy with peritoneal biopsy performed on 10/23/2018. HOSPITAL COURSE: Mr. Oscar is a 33-year-old male who presented to the ER with a chief complaint of abdominal pain. On admission a CT of the abdomen and pelvis was done that revealed bilateral pleural effusions, a small amount of ascites and probable peritoneal carcinomatosis. The patient was admitted to the hospitalist service and GI, General Surgery and Oncology were consulted. The patient was taken for EGD and colonoscopy with biopsy on 10/19/2018 that revealed gastritis, sigmoid ulcers, diverticulosis and a hiatal hernia. While the pathology from the biopsies was pending arrangements were made for the patient to undergo a diagnostic laparoscopy with peritoneal biopsy due to the findings seen on the CT of the abdomen and pelvis. Peritoneal biopsies were performed during the procedure and the peritoneal fluid was sent for cytology. There was concern about possible TB however the serology came back negative and also the peritoneal fluid came back negative. Ultimately the pathology from the peritoneal biopsy came back positive for poorly differentiated malignancy. The differential included peritoneal germ cell tumor, serous type carcinoma, or another rare carcinoma. The results were reviewed by Dr. Najera and since the patient had improved clinically, it was recommended that the patient be discharged home and follow up with Dr. Najera as outpatient to discuss treatment options. DISCHARGE MEDICATIONS: 1. Dulcolax 10 mg p.o. at bedtime. 2. Colace 100 mg p.o. twice a day. 3. MiraLAX 17 g oral twice a day. 4. Norvasc 5 mg p.o. daily. 5. Percocet 7.5/325 one tab oral every 6 hours p.r.n. for pain. DISCHARGE DIET: Regular diet. ACTIVITY: As tolerated. FOLLOWUP INSTRUCTIONS: The patient will need to follow up with Dr. Najera as scheduled by his clinic. cc: Susana Donato MD
== END 2018-10-27 14:12 | disposition home or self-care (01) | DRG 357 ==
LOC: ED 11:58 → SUATTDRO 16:45 → EDIPHOLD 16:45 → 4N 20:55
PROVIDERS: ATTEND Internal Medicine
CPT/HCPCS: 49083; 71260; 74177; 76700; 76870; 80048; 80053; 80074; 81001; 82042; 82105; 82150; 82378; 83690; 83735; 84157; 84443; 85025; 85027; 85610; 85730; 86301; 86480; 87070; 87075; 87116; 87206; 88112; 88305; 88312; 88313; 89051; 94761; 94799; 96374; 96375; 96376; 99285; A9270; C9113; J0330; J0696; J1100; J1650; J1885; J2250; J2270; J2405; J3010; J7030; J7120; Q9967; S0164

== ENCOUNTER 2019-08-14 09:44 | Inpatient (IN) ==
[2019-08-14] MEDS ORDERED: ZOFRAN IV ONE (10:40)
[2019-08-14] MEDS ORDERED: DILAUDID IV ONE (10:40)
[2019-08-14] MEDS ORDERED: TORADOL IV ONE (10:40)
[2019-08-14] MEDS ORDERED: NS 1,000 ML IV ONE (10:40)
[2019-08-14 11:23] LABS: BASO# 0.04 X1000 (0.0-0.2); BASO% 0.4 % (0.0-0.8); EOS# 0.44 X1000 (0.0-0.7); EOS% 4.8 % (0.0-10.0); HEMATOCRIT 43.1 % (42.0-52.0); HEMOGLOBIN 13.6 g/dL (14.0-18.0); LYMPH# 1.44 X1000 (1.2-3.4); LYMPH% 15.8 % (20.5-51.1); MCHC 31.6 g/dL (33-37); MCV 82.3 FL (81-99); MONO# 0.61 X1000 (0.11-0.59); MONO% 6.7 % (1.7-9.3); MPV 8.5 FL (7.4-10.4); NEUT% 72.3 % (42.2-75.2); PLT 422 X1000 (130-400); RBC 5.24 XMIL (4.7-6.1); WBC 9.13 X1000 (4.8-10.8)
[2019-08-14 12:02] LABS: AGAP 11; ALBUMIN 3.8 g/dL (3.5-5.0); ALKALINE PHOSPHATASE 150 U/L (32-122); AMYLASE 76 U/L (20-200); BUN 10 mg/dL (8-22); CALCIUM 10.1 mg/dL (8.8-10.2); CHLORIDE 96 mmol/L (98-107); COSMO 271; CREATININE 0.6 mg/dL (0.7-1.2); ESTIMATED GFR > 60; GLUCOSE 99 mg/dL (70-104); GOT 17 U/L (10-34); GPT 14 U/L (10-44); POTASSIUM 4.2 mmol/L (3.5-5.1); SODIUM 136 mmol/L (136-145); TCO2 29 mmol/L (25-35); TOTAL BILIRUBIN 0.25 mg/dL (0.20-1.00); TOTAL PROTEIN 7.7 g/dL (6.3-8.3)
[2019-08-14] MEDS ORDERED: ZOSYN 4.5 GM in NS 100 ML IV ONE (13:01)
--- NOTE | 2019-08-14 13:07 | PROVIDER DOCUMENTATION ---
This chart was entered by Brenda Cevallos Scribe, acting as scribe for Juan Long MD. HPI-Abdominal Pain/GI Problem - General Chief Complaint: Abdominal Pain Stated Complaint: ABD PAIN Time Seen by Provider: 08/14/19 10:27 Source: patient Allergies/Adverse Reactions: Patient Allergies Allergy/AdvReac Type Severity Reaction Status Date / Time No Known Allergies Allergy Verified 08/14/19 11:30 Home Medications: Home Medication List Medication Instructions Recorded Confirmed Last Taken Type Alprazolam [Xanax] 0.25 mg PO DAILY PRN PRN 07/06/19 07/25/19 07/24/19 History Hydrocodone/Acetaminophen 1 ea PO Q6H PRN PRN 07/06/19 07/25/19 07/24/19 History [Hydrocodone-Acetamin 5-325 mg] - History of Present Illness-ABD Nature of Presenting Problems: Patient is a 34 year old male who presents with RUQ and epigastric pain. History of stage 4 pancreatic cancer which is followed by Dr. Adams. Reports last chemo was 2 weeks ago. Denies nausea, vomiting, fever and urinary symptoms. Abdominal Pain Onset Location: reports: RUQ, epigastric Pain Radiation: reports: no radiation Quality of Pain: reports: cramping Severity in ED: reports: mild Onset/Duration: reports: gradual Timing: reports: still present, getting worse Activities at Onset: reports: light activity Associated Symptoms: denies: fever/chills, genitourinary problems, nausea, vomiting Bruising or Bleeding Gums?: No (tt) Similar Symptoms Previously?: Yes Recently seen or treated by another doctor?: Yes Review of Systems - Adult - REVIEW OF SYSTEMS - ADULT Constitutional: reports: no symptoms reported. denies: fever Eyes: reports: no symptoms reported Ears, Nose, Mouth & Throat: reports: no symptoms reported Cardiovascular: reports: no symptoms reported Respiratory: reports: no symptoms reported Gastrointestinal: reports: see HPI, abdominal pain (RUQ and epigastric). denies: nausea, vomiting Genitourinary: reports: no symptoms reported. denies: dysuria, hematuria, urinary retention Musculoskeletal: reports: no symptoms reported Integumentary: reports: no symptoms reported Neurological: reports: no symptoms reported Psychiatric: reports: no symptoms reported Endocrine: reports: no symptoms reported Hematologic/Lymphatic: reports: no symptoms reported Allergic/Immunologic: reports: no symptoms reported All Other Systems: Reviewed and Negative Past History - Adult - PAST MEDICAL HISTORY-ADULT Review of Records: reports: Old Records Reviewed, Nursing Assessment Review, Medications Reviewed, Social history reviewed & non-contributory. Major Childhood Illnesses: reports: denies history Cardiovascular: reports: denies history Respiratory: reports: denies history Gastrointestinal: reports: other (pancreatic cancer) Obstetrical/Gynecological: reports: denies history Genitourinary: reports: denies history Musculoskeletal: reports: denies history Neurological: reports: denies history Psychiatric: reports: denies history Endocrine/Immune: reports: denies history Other Conditions: reports: denies history - PRIOR SURGERIES/PROCEDURES Surgical/Procedure History: reports: reviewed, not pertinent, other (pancreatic cancer resection) - PRIOR HOSPITALIZATIONS Prior Hospitalizations: reports: none - IMMUNIZATION STATUS Childhood Immunizations: See Nurse Assessment Flu Vaccine: See Nurse Assessment - FAMILY HISTORY Family History: reviewed, not pertinent - SOCIAL HISTORY Smoking: denies Substance Use: denies Physical Exam-General - PHYSICAL EXAM-ADULT Initial Vital Signs Reviewed: Yes - CONSTITUTIONAL General Appearance: alert, no apparent distress. negative: lethargic - RESPIRATORY Respiratory: chest non-tender, lungs clear, normal breath sounds. negative: rhonchi, wheezing - CARDIOVASCULAR Cardiovascular: no gallop, tachycardia. negative: systolic murmur - GASTROINTESTINAL (ABDOMEN) Abdominal Exam: normal bowel sounds, soft, tenderness (RUQ and epigastric), other (midline scar. patient states scar is from exploratory surgery 4 months ago for his pancreas). negative: guarding, rebound - MUSCULOSKELETAL Extremity: non-tender, normal inspection - SKIN Integumentary: normal color, normal turgor, warm/dry. negative: diaphoresis - NEUROLOGIC Neurologic: grossly normal - PSYCHIATRIC Psych/Mental Status: normal mood/affect, normal thought content, normal thought process, oriented x 3 Progress - PLAN OF CARE/RESULTS Progress/Plan/Lab Results: Vital Signs - 8 hr 08/14/19 10:01 Temperature 97.8 F Pulse Rate 114 H Respiratory Rate 18 Blood Pressure 132/94 O2 Sat by Pulse Oximetry 100 Result Diagrams: 08/14/19 11:00 08/14/19 11:00 - REASSESSMENT Reassessment #1 Time Reassessed: 12:45 Status: improving - CONSULTS/PCP/HOSPITALIST Notification #1 *Consult/PCP/Hospitalist*: Maureen paged at 1030 Consult Disposition: other (no return of call) #2 Consult: Pavan paged at 1245 Time Discussed: 13:01 (CT and admit to hospitalist, put on zosyn) Reason/Comments: Dr. Long consulted with Dr. Browne about patient. Consult Disposition: other #3 Consult: Rachele Miller Time Discussed: 13:06 Consult Disposition: Will see in ED, other Departure - Departure Date of Disposition Decision: 08/14/19 Time of Disposition Decision: 13:06 DIAGNOSIS: Primary pancreatic cancer with metastasis to other site Cholecystitis with cholelithiasis Qualifiers: Cholelithiasis location: gallbladder Cholecystitis acuity: acute and chronic Biliary obstruction: without biliary obstruction Qualified Code(s): K80.12 - Calculus of gallbladder with acute and chronic cholecystitis without obstruction Disposition: ADMITTED INPATIENT 09 Certified Medical Emergency: Emergent Condition: Stable Referrals and Follow-Ups: None,PCP [Primary Care Provider] - - Critical Care Note This patient required my direct & personal management of CC.: No Attestation - Physician/ WALI Attestation Patient care was provided by Advanced Practice Provider:: No The physician spent face to face time with patient:: Yes Advanced Practice Provider documentation review:: Supervising physician onsite and consulted in the evaluation and care of this patient. The physician did have a face to face encounter with the patient. This chart was documented by the indicated scribe, (Brenda Cevallos Scribe) and accurately reflects the services I performed and decisions made by me, Juan Long MD, as attested by the provider's signature.
[2019-08-14] MEDS ORDERED: SODIUM CHLORIDE 0.9% INJ SCH (13:30)
[2019-08-14] MEDS ORDERED: DURAGESIC 12 MICROGM/HR PATCH TD SCH (13:30)
[2019-08-14] MEDS: NS 1,000 ML IV SCH (14:33)
[2019-08-14] MEDS: PROTONIX IV SCH (14:40)
--- NOTE | 2019-08-14 15:30 | Diag Imaging Result Doc PS360 ---
EXAM: CT ABD/PELVIS W/PO AND IV CON 08/14/2019 HISTORY: abd pain TECHNIQUE: This exam was performed using automated exposure control, adjustment of mA or kV according to patient size, and/or use of iterative reconstruction technique. COMMENT: There is some dependent atelectasis in both lower lobes. There is ascites. This appears slightly worse than on 08/02/2019. There is some apparent periportal edema. The spleen is not enlarged. The adrenal glands pancreas and kidneys are normal in appearance. There is a fair amount of stool present in the right colon. Small bowel is somewhat distended. The distal colon is not distended. The small bowel is much more distended than it was on the previous study. The aorta is not distended. There are prominent mesenteric nodes. There is an apparent enhancing nodule on the peritoneal surface in the right paracolic gutter on image 87. This was not appreciable previously. The possibility of peritoneal implants and malignant ascites is suggested. There are some apparent implants on the surface of the distal ileum and there may be a stricture of the distal ileum on this basis. Pelvis: Some enhancement of the peritoneal surfaces is demonstrated. There are apparent implants directly above the dome of the bladder. The bladder is not distended. There is a sclerotic nodule in the ischium on the left. This is probably a bone island. No evidence of acute bony abnormalities is present. IMPRESSION: Malignant ascites. Partial obstruction of the distal small bowel. Electronically signed by Denis Baker 08/14/2019 3:28 PM
[2019-08-14] MEDS: ZOFRAN IV PRN (16:41)
[2019-08-14] MEDS: DILAUDID IV PRN (16:45)
[2019-08-14 18:19] LABS: URINE SOURCE CLEAN CATCH
[2019-08-14 18:24] LABS: BILIRUBIN URINE SMALL (NEGATIVE); BLOOD URINE NEGATIVE (NEGATIVE); COLOR YELLOW; GLUCOSE URINE NEGATIVE (NEGATIVE); KETONE URINE 150 mg/dL (NEGATIVE); LEUKOCYTES URINE NEGATIVE (NEGATIVE); NITRITE URINE NEGATIVE (NEGATIVE); PH URINE 6.5; PROTEIN URINE 70 mg/dL (NEGATIVE); TURBIDITY URINE CLEAR (CLEAR); UROBILINOGEN URINE 4 mg/dL (NORMAL)
[2019-08-14 18:26] LABS: UR EPITHELIAL CELLS <10 /HPF (<10); URINE BACTERIA NEGATIVE /HPF; URINE RBC <10 /HPF (<10); URINE WBC <10 /HPF (<10)
[2019-08-14 18:33] LABS: SP GRAVITY URINE 1.015
--- NOTE | 2019-08-14 21:54 | HISTORY AND PHYSICAL ---
CHIEF COMPLAINT: Abdominal pain. HISTORY OF PRESENT ILLNESS: This is a 34-year-old gentleman with a history of metastatic pancreatic and peritoneal carcinomatosis, hypertension, who presents to the emergency room from Dr. Adams's office complaining of right upper quadrant and epigastric cramping that has been present for 2 weeks. He states that it is increasing in intensity and taking longer to relax over the last few days. He has undergone a CT and a HIDA scan, and I think an ultrasound over this past month. He denies any vomiting, any black or bloody stools, any fevers or chills. PAST MEDICAL HISTORY: 1. Pancreatic cancer. 2. Carcinomatosis. 3. Constipation. 4. Hypertension. 5. Diverticulosis. PAST SURGICAL HISTORY: 1. EGD and colonoscopy with biopsy. 2. Open excisional peritoneal biopsy. SOCIAL HISTORY: He denies alcohol, tobacco, or illicit drug use. ALLERGIES: No known drug allergies. HOME MEDICATIONS: A list will be obtained by the nursing staff, and once verified, will be restarted as appropriate. REVIEW OF SYSTEMS: Discussed with the patient with pertinent positives stated in HPI. He denied any syncope, dizziness, chest pain, palpitations, any black or bloody stools, black or bloody vomitus, any shortness of breath, cough, fever, chills. PHYSICAL EXAMINATION: GENERAL: This is a 34-year-old gentleman who is lying on the stretcher in the emergency room in no distress. VITAL SIGNS: Blood pressure is 132/90 with a heart rate of 101, respirations are 18, temperature is 97.8 degrees with O2 saturations 100% on room air. EYES: Pupils are equal, round, react to light. EOMs are intact. Sclerae are anicteric. NECK: Supple with trachea midline. CARDIOVASCULAR: Regular rate and rhythm. He is tachycardic. S1 and S2 appreciated. No murmur. PULMONARY: Breath sounds are clear. No increased work of breathing noted. Chest rises and falls symmetric to respiration. Chest wall is nontender to palpation. GASTROINTESTINAL: Abdomen is soft. He does have tenderness, specifically right upper quadrant and epigastric. Midline incision is intact. Bowel sounds are present in all 4 quadrants. SKIN: Warm and dry. NEUROLOGIC: Alert and oriented x3. LABORATORY AND DIAGNOSTIC DATA: WBC is 9.1 with hemoglobin 13.6, hematocrit 43.1, platelets 422,000. Sodium 136, potassium 4.2, BUN 10, creatinine 0.6 with a glucose of 99. Blood cultures are pending. CT of the abdomen and pelvis revealed enhancement of the peritoneal surfaces. There were apparent implants directly above the dome of the bladder. Bladder is not distended. There is a sclerotic nodule in the ischium on the left. It is probably a bone island. Impression: Malignant ascites and partial obstruction of the distal small bowel. ASSESSMENT: 1. Partial small bowel obstruction. 2. Pancreatic cancer, carcinomatosis, malignant ascites. 3. Constipation. 4. Hypertension. PLAN: The patient will be admitted to the hospital. He will be NPO. We will consult Dr. Ramírez Browne, as well as Dr. Adams. Blood cultures are pending. He has been given Zosyn which we will continue. We will continue with IV hydration. We will continue his fentanyl patch every 72 hours. We will add Dilaudid and Zofran for pain and nausea. Protonix q.24 hours. We will check a CBC and CMP in the morning. The patient was examined and plan was discussed with Dr. Vega. Further treatment pending hospital course. Dictated by ZAN Puente for Frank Vega MD cc: ZAN Puente MD
--- NOTE | 2019-08-14 22:52 | GENERAL SURGERY CONSULTATION ---
DATE: 08/14/2019 REASON FOR CONSULTATION: Possible gallbladder disease. CHIEF COMPLAINT: Colicky abdominal discomfort. HISTORY OF PRESENT ILLNESS: A 34-year-old gentleman known to me. He has metastatic GI malignancy of unclear primary with carcinomatosis and extensive malignant adhesions. He is known to me, I placed a port and have done peritoneal biopsies for him in the past. He has been undergoing palliative chemotherapy, but over the last month to 2 months he has had some intermittent abdominal pain, associated nausea. He says he has a bowel movement every 3 days but these have been slow. Denies any jaundice. He is losing weight. Appetite has been minimal. MEDICAL HISTORY: Negative other than what is mentioned in the HPI. SURGICAL HISTORY: He has had a diagnostic laparoscopy as well as an open peritoneal biopsy and a port placement. SOCIAL HISTORY: No tobacco, alcohol, or drugs. He works in construction. Bulgarian is his 2nd language. FAMILY HISTORY: Reviewed and noncontributory. REVIEW OF SYSTEMS: Ten-point negative, other than what is mentioned in HPI. OBJECTIVE: Vital Signs: She is afebrile. Heart rate is in the low 100s. Blood pressure 128/87. Oxygen saturation 100%. General: He is alert. HEENT: No scleral icterus. No cervical mass. Cardiovascular: Normal rate but intermittently low-grade sinus tachycardia. Pulmonary: No increased work of breathing. Abdomen: Soft, mildly distended. Subjective tenderness in the lower quadrants but no peritonitis. Integument: Warm, dry without jaundice. Psychiatric: Appropriate affect. Neurologic: No gross deficits. Peripheral vascular: He has a right- sided port that is in place and is well healed with no evidence of infection. LABORATORY DATA: I reviewed his white count is 9, hematocrit 43, platelets 422,000. Creatinine 0.6. LFTs are normal with the exception of mild elevation in his alkaline phosphatase. Lipase and lactate are normal. Urinalysis is pending. I reviewed his CT scan that was obtained, that shows persistent ascites with peritoneal implants diffusely consistent with known metastatic disease as well as dilation of small-bowel consistent with partial obstruction. ASSESSMENT AND PLAN: This is a gentleman. He has had a HIDA scan that showed nonfilling of the gallbladder. He has had intermittent colicky pain, he describes, the lower abdomen for quite some time, going back to June, he had cholelithiasis, thickened gallbladder wall, and he had a HIDA scan done August 09 that showed no filling of the gallbladder. Ongoing chemotherapy. Given the appearance of his scan and his symptoms, I worry that this is more partial intermittent malignant obstruction more so than gallbladder pathology. I would anticipate that the thickening of the gallbladder wall is due to the peritoneal disease and his ascites, as this was extensive and diffusely throughout his abdomen at the time of the last operation. I do think he is probably to some degree dehydrated with failure to thrive type picture. I have recommended hydration, infectious workup and low residual, possibly on full liquid diet in the setting of his partial obstruction. Stool softener is reasonable. He could have a component of constipation here. It is doubtful that cholecystectomy would in anyway improve his clinical condition and would be based off the last operation and the extensive nature of his malignant adhesions, most likely impossible. I do not suspect cholecystitis. His LFTs are normal, his white count is normal, and I think any cholecystostomy type procedure is not indicated either. Unfortunately, he has got a terrible disease. I have discussed this with both the patient and his family member that is with him. cc: Janet Browne MD
[2019-08-15] MEDS: DILAUDID IV PRN ×6 (00:43→22:05)
[2019-08-15] MEDS: NS 1,000 ML IV SCH ×2 (04:28→18:42)
[2019-08-15 06:34] LABS: BASO# 0.01 X1000 (0.0-0.2); BASO% 0.1 % (0.0-0.8); EOS# 0.03 X1000 (0.0-0.7); EOS% 0.3 % (0.0-10.0); HEMATOCRIT 42.4 % (42.0-52.0); HEMOGLOBIN 13.2 g/dL (14.0-18.0); IMM GRAN# 0.02 X1000 (0.0-0.04); IMM GRAN% 0.2 % (0.0-0.5); LYMPH# 0.73 X1000 (1.2-3.4); LYMPH% 7.5 % (20.5-51.1); MCH 25.5 PG (27-31); MCHC 31.1 g/dL (33-37); MCV 81.9 FL (81-99); MONO% 4.1 % (1.7-9.3); MPV 9.1 FL (7.4-10.4); NEUT# 8.53 X1000 (1.4-6.5); NEUT% 87.8 % (42.2-75.2); PLT 417 X1000 (130-400); RBC 5.18 XMIL (4.7-6.1); RDW 15.9 % (11.5-14.5); WBC 9.72 X1000 (4.8-10.8)
[2019-08-15 06:54] LABS: AGAP 13; ALB/GLOB RATIO 1.1; ALBUMIN 3.5 g/dL (3.5-5.0); ALKALINE PHOSPHATASE 232 U/L (32-122); BUN 13 mg/dL (8-22); CHLORIDE 99 mmol/L (98-107); COSMO 272; CREATININE 0.6 mg/dL (0.7-1.2); ESTIMATED GFR > 60; GLUCOSE 90 mg/dL (70-104); GOT 74 U/L (10-34); GPT 77 U/L (10-44); POTASSIUM 4.5 mmol/L (3.5-5.1); SODIUM 136 mmol/L (136-145); TCO2 24 mmol/L (25-35); TOTAL BILIRUBIN 0.27 mg/dL (0.20-1.00); TOTAL PROTEIN 6.8 g/dL (6.3-8.3)
[2019-08-15 07:33] LABS: LYMPHS 8 % (21-51); MONO 4 % (1-9); SEGS 88 % (42-75)
--- NOTE | 2019-08-15 12:16 | PROGRESS NOTE ---
DATE: 08/15/2019 INTERVAL HISTORY: No acute events overnight. He did have 2 episodes of vomiting. He has been passing gas. He is complaining of abdominal pain. His family members are currently at bedside. Some of them also help him translate, though I do think he is able to understand Sinhala. OBJECTIVE: Vital Signs: Temperature of 98.2 degrees, pulse 108, respiratory rate 16, blood pressure 129/82, saturating 98% room air. General: Not in distress. HEENT: Oral cavity is moist. Lungs: Air entry bilaterally equal. No wheeze, rhonchi, crackles. Cardiovascular: S1, S2 normal. No murmur or gallop. He is tachycardic. He has a right-sided chest port. Abdomen: Soft. Hypoactive bowel sounds. He does have generalized abdominal tenderness, especially in the periumbilical and lower quadrants. Extremities: No lower extremity edema. Neurologic: He is alert and oriented x3. LABORATORY DATA: No leukocytosis. Hemoglobin of 13.2. He does have thrombocytosis. Electrolytes suggest that his sodium is 136, potassium 4.5, BUN 13, creatinine 0.6. His WBC is 9.7. MICROBIOLOGY: He has blood cultures which are drawn, and they are in lab. IMAGING: No new imaging. ASSESSMENT AND PLAN: 1. Gradually progressive worsening abdominal pain. Differential includes peritoneal carcinomatosis, constipation, versus others. Though the CT scan of the abdomen did detect partial small-bowel obstruction, he has been passing gas and he has constipation. Though intra-abdominal infection, such as peritonitis is a possibility, he has not had any fever or leukocytosis to suggest that. Also, he does not have a massive amount of fluid for tapping, and considering his carcinomatosis, I would avoid unnecessary paracentesis. Continue intravenous fluids, fentanyl patch, intravenous hydromorphone for pain. I will start him on bisacodyl and MiraLAX to avoid constipation. I will also start him on Zofran for vomiting. 2. Gastrointestinal malignancy with peritoneal carcinomatosis. Oncology team has been consulted. 3. Disposition. Monitor the patient on medical floor. Plan of care discussed with the patient and his family members at bedside. Their questions have been answered. cc: Brandin Galloway MD
[2019-08-15] MEDS: DULCOLAX PR SCH ×2 (12:22→20:03)
[2019-08-15] MEDS: MIRALAX PO SCH ×2 (12:22→20:03)
[2019-08-15] MEDS: ZOFRAN PO SCH ×2 (12:22→20:03)
[2019-08-15] MEDS: PROTONIX IV SCH (13:20)
[2019-08-15] MEDS ORDERED: RELISTOR SUBQ ONE (16:00)
[2019-08-15] MEDS: LOVENOX SUBQ SCH (16:16)
[2019-08-15] MEDS: DURAGESIC 12 MICROGM/HR PATCH TD SCH (16:16)
--- NOTE | 2019-08-15 20:57 | PROGRESS NOTE ---
DATE: 08/15/2019 ADDENDUM: The patient came in. He has metastatic pancreatic cancer. Still getting chemo treatment. Has come in with severe pain, possible partial small bowel obstruction. On CT does not confirm that. Surgery has been consulted. He will need aggressive bowel regimen, pain control and we will continue to follow closely. His abdominal exam is fairly benign all things considered. cc: Frank Vega MD
[2019-08-16] MEDS: DILAUDID IV PRN ×7 (01:26→23:02)
[2019-08-16] MEDS: ZOFRAN PO SCH ×3 (03:01→20:06)
[2019-08-16] MEDS ORDERED: MAXIPIME 1 GM in NS 50 ML IV SCH (06:30)
[2019-08-16] MEDS: FLAGYL 500 MG/NS 500 MG/100 ML IVPB IV SCH ×2 (07:00→16:44)
[2019-08-16] MEDS: DULCOLAX PR SCH ×3 (08:50→20:07)
[2019-08-16] MEDS: MIRALAX PO SCH ×2 (08:50→20:06)
[2019-08-16] MEDS: NS 1,000 ML IV SCH (09:00)
[2019-08-16] MEDS: PROTONIX IV SCH (13:59)
[2019-08-16] MEDS: MAXIPIME 2 GM/NS 2 GM/100 ML IVPB IV SCH (15:10)
[2019-08-16] MEDS: LOVENOX SUBQ SCH (16:44)
--- NOTE | 2019-08-16 19:38 | PROGRESS NOTE ---
DATE: 08/16/2019 INTERVAL HISTORY: One of his 2 blood cultures was growing gram-negative rods, and in the morning time he was started on intravenous antibiotics. Yesterday his hydromorphone dose was also increased. Since then he has been feeling better. He states he is passing gas. There is no documented bowel movement. He is eating slightly better. He denies any new complaints. His family is not currently at bedside. VITALS: Temperature 97.7, pulse 88, respiratory rate 16, blood pressure 106/90, saturating 98% room air. PHYSICAL EXAMINATION: General: He is not in any acute distress HEENT: Oral cavity is moist. Lungs: Air entry bilaterally equal. No wheeze, rhonchi, or crackles. Cardiovascular: S1, S2 normal. Not tachycardic. No murmur, rub, or gallop. Abdomen: Soft. There is mild tenderness in the lower quadrant, however significantly improved from before. He does have active bowel sounds. Extremity: No lower extremity edema. Neurologic: He is alert. He is able to engage in the clinical encounter. LABS: Suggestive of hemoglobin of 13.2, platelets of 417. He did not have labs drawn today, though. Microbiology: One of the 2 blood cultures is growing gram-negative rods. IMAGING: No new imaging. ASSESSMENT AND PLAN: 1. Abdominal pain. Differential includes peritoneal carcinomatosis, constipation, and also suspected spontaneous bacterial peritonitis. He has been started on intravenous cefepime and Flagyl, and I will increase the dose of cefepime and follow up final blood culture results. 1 of the 2 cultures growing gram negative rods. 2. Partial small bowel obstruction on presentation. He has been passing gas I will keep on increasing the stool softener dose and advance his diet. He has not been having any vomiting. 3. History of pancreatic cancer with peritoneal carcinomatosis and malignant ascites. He is treated with Gemzar and last dose was given on 07/25/2019. Oncology team is on board. Continue Fentanyl patch, intravenous hydromorphone as needed for abdominal pain. DISPOSITION: Continue to monitor patient inside the hospital. Plan of care discussed with him. His questions have been answered. cc: Brandin Galloway MD [facility]PITALSeth
--- NOTE | 2019-08-16 21:04 | HEMO/ONC CONSULTATION ---
DATE: 08/15/2019 CHIEF COMPLAINT: Pancreatic cancer. HISTORY OF PRESENT ILLNESS: Mr. Maharaj is a pleasant, 34-year-old, male, who presented to [facility] Emergency Department secondary to intractable abdominal pain. The patient has a history of pancreatic cancer with malignant ascites. He is well known to Dr. Adams. He is treated with Gemzar and last dose was given on 07/25/2019. Upon presentation to [facility], the patient underwent a CT of the abdomen and pelvis, which revealed malignant ascites and partial obstruction of the distal small bowel. The patient was admitted. Surgery was consulted. We are consulted as the patient is well known to us. PAST MEDICAL HISTORY: 1. Pancreatic cancer. 2. Carcinomatosis. 3. Hypertension. 4. Diverticulosis. PAST SURGICAL HISTORY: Open excisional peritoneal biopsy. SOCIAL HISTORY: The patient does not use tobacco, alcohol, or illicit drugs. FAMILY HISTORY: Negative for hematologic or oncologic disease. MEDICATIONS ON ADMISSION: Medication reconciliation is currently pending. ALLERGIES: No known drug allergies. REVIEW OF SYSTEMS: A 14-point review of systems was obtained and is negative, except for mentioned in the HPI. PHYSICAL EXAMINATION: Mr. Maharaj is a pleasant, 34-year-old, male, lying supine in bed, in no immediate distress.Vital Signs: Temperature 98.2 degrees, blood pressure 129/82, heart rate 108, respirations 16, O2 saturation 99% on room air. HEENT: Normocephalic, atraumatic. Mucous membranes are pink and moist. Sclerae is anicteric. Extraocular movements intact. Neck: Supple. Lungs: Clear to auscultation bilaterally. Chest expansion is equal bilaterally. Cardiovascular: S1, S2 is heard without murmur, rub, or gallop. Abdomen: Soft, tender to palpation throughout with decreased bowel sounds, and no rebound noted. Extremities: Without clubbing, cyanosis, or edema. Dermatologic: No rashes, bruises, or lesions. Neurologic: Awake, but somnolent. He is oriented x3, and has no focal deficit. LABORATORY DATA: Hemoglobin 13.0, hematocrit 42.4, white blood cell count 9.72, platelets 417,000. Sodium 136, potassium 4.5, chloride 99, CO2 is 24, BUN 13, creatinine 0.6, glucose is 90, calcium 9.0, bilirubin 0.27, alkaline phosphatase 232, AST 74, ALT 77. ASSESSMENT AND PLAN: 1. Pancreatic cancer with malignant ascites/carcinomatosis. The patient is currently on Gemzar. Cycle 1, day 15 was given on 07/25/2019. We will hold treatment until the patient's acute illness improves. 2. Partial small bowel obstruction. Dr. Browne of Surgery has been consulted. The patient is currently NPO. 3. Nonfilling of gallbladder per HIDA scan of questionable etiology, questionably related to metastatic disease versus gallstone. Surgery has been consulted. 4. Uncontrolled abdominal pain. We will increase Dilaudid at this time to 1 to 2 mg q.3 hours p.r.n. pain. 5. We will follow along with you and make further recommendations pending outcomes. The above reflects the history, exam, assessment, and plan of Dr. Adams. Dictated by ZNA Dumont for Roberto Carlos Adams MD cc: ZAN Dumont MD
[2019-08-17] MEDS: FLAGYL 500 MG/NS 500 MG/100 ML IVPB IV SCH ×3 (01:30→16:06)
[2019-08-17] MEDS: DILAUDID IV PRN ×8 (02:21→21:24)
[2019-08-17] MEDS: MAXIPIME 2 GM/NS 2 GM/100 ML IVPB IV SCH ×2 (02:22→15:11)
[2019-08-17] MEDS: ZOFRAN PO SCH ×3 (03:58→19:39)
[2019-08-17] MEDS: DULCOLAX PR SCH ×2 (03:58→08:58)
[2019-08-17 05:45] LABS: BASO# 0.02 X1000 (0.0-0.2); BASO% 0.3 % (0.0-0.8); EOS# 0.19 X1000 (0.0-0.7); EOS% 2.4 % (0.0-10.0); HEMATOCRIT 38.2 % (42.0-52.0); HEMOGLOBIN 11.7 g/dL (14.0-18.0); IMM GRAN# 0.02 X1000 (0.0-0.04); IMM GRAN% 0.3 % (0.0-0.5); LYMPH% 12.7 % (20.5-51.1); MCH 25.3 PG (27-31); MCHC 30.6 g/dL (33-37); MCV 82.7 FL (81-99); MONO% 7.6 % (1.7-9.3); MPV 8.8 FL (7.4-10.4); NEUT# 6.04 X1000 (1.4-6.5); NEUT% 76.7 % (42.2-75.2); PLT 336 X1000 (130-400); RBC 4.62 XMIL (4.7-6.1); RDW 15.6 % (11.5-14.5); WBC 7.87 X1000 (4.8-10.8)
[2019-08-17 06:30] LABS: AGAP 15; ALB/GLOB RATIO 1.1; ALBUMIN 3.3 g/dL (3.5-5.0); ALKALINE PHOSPHATASE 148 U/L (32-122); BUN 9 mg/dL (8-22); CHLORIDE 98 mmol/L (98-107); COSMO 268; CREATININE 0.5 mg/dL (0.7-1.2); ESTIMATED GFR > 60; GLUCOSE 88 mg/dL (70-104); GOT 15 U/L (10-34); GPT 29 U/L (10-44); POTASSIUM 3.8 mmol/L (3.5-5.1); SODIUM 135 mmol/L (136-145); TCO2 22 mmol/L (25-35); TOTAL BILIRUBIN 0.24 mg/dL (0.20-1.00); TOTAL PROTEIN 6.4 g/dL (6.3-8.3)
[2019-08-17] MEDS ORDERED: FLEET MINERAL OIL ENEMA PR SCH (07:00)
[2019-08-17] MEDS: LACTULOSE PO SCH ×3 (08:11→20:12)
[2019-08-17] MEDS: MIRALAX PO SCH ×3 (08:12→20:13)
[2019-08-17] MEDS: PRILOSEC PO SCH (08:13)
--- NOTE | 2019-08-17 08:33 | Diag Imaging Result Doc PS360 ---
ABDOMEN FLAT/UPRIGHT - 08/17/2019 INDICATION: pain COMPARISON: CT from 08/14/2019 FINDINGS: There are several abnormally dilated loops of small bowel. Enteric contrast remains throughout the distal small bowel, with essentially not in the colon. There is no colonic gas or stool. IMPRESSION: High-grade distal small bowel obstruction. Electronically signed by Bryce Villalpando 08/17/2019 8:31 AM
--- NOTE | 2019-08-17 11:53 | PROGRESS NOTE ---
DATE: 08/17/2019 INTERVAL HISTORY: No acute events overnight. Mr. Maharaj has not had any bowel movement since the last 3 days now since admission. He denies any vomiting. He complains of abdominal pain. I discussed with him about intensifying his bowel regimen and getting an abdominal x-ray. I also discussed with him about continuing antibiotics. VITALS: Temperature 98.1, pulse 101, respiratory 18, blood pressure 140/90, saturating 98% on room air. PHYSICAL EXAMINATION: General: Not in acute distress. HEENT: Oral cavity is moist. Lungs: Air entry bilaterally equal. No wheeze or crackles. Heart: Normal. No murmur or gallop. Abdomen: Soft. There is generalized tenderness, more pronounced in periumbilical and lower quadrants. Hypoactive bowel sounds. Extremities: No lower extremity edema. Neurologic: He is alert and oriented x3. LABS: Suggestive of no leukocytosis. Hemoglobin of 11.7, platelet of 336. BUN of 9, creatinine 0.5. Repeat blood cultures have been in the lab. Initial blood culture is pending. ASSESSMENT AND PLAN: 1. Abdominal pain. Differential includes peritoneal carcinomatosis, malignant ascites, SBO constipation and suspected spontaneous bacterial peritonitis. Follow up final blood culture results for gram-negative bacteremia. Continue intravenous cefepime and Flagyl and narrow down antibiotic based on culture results. Repeat cultures have also been ordered. 2. Small bowel obstsruction with Constipation. Continue MiraLAX and add lactulose. He did not respond to suppositories or enema. Follow up with repeat abdominal x-ray. Differential includes ileus vs mechanical small bowel obstruction due to carcinomatosis. 3. History of pancreatic cancer, peritoneal carcinomatosis, malignant ascites. He has been treated with Gemzar, last dose being on 07/25/2019. Oncology team on board. Continue fentanyl patch, intravenous hydromorphone as needed for abdominal pain. DISPOSITION: Continue to monitor patient inside the hospital as I await final blood culture data and improvement in abdominal pain. I am also awaiting him to have a bowel movement. I will go down and talk with the family members. The patient is but is usually able to communicate in Salvadorean reasonably. Plan of care discussed with the nursing team. ADDENDUM: I reviewed Abdominal xray which suggests likely mechanical SBO. On previous CAT scan he had suspected ileal stricture likely due to peritoneal carcinomatosis. On my rectal exam, he doesn't have any rectal stool. I had informal discussion with the surgeon database administration project manager and he recommended conservative management and he deferred further management to the primary surgeon who would be back on Monday. I will keep patient NPO except meds and ice chips and follow up with repeat abdominal X ray tomorrow. He doesn't have vomiting. He is not passing gas either. I updated his sister in law about his clinical condition, differential diagnoses at bedside and answered all of her questions. cc: Brandin Galloway MD MTDD
[2019-08-17] MEDS: CLINIMIX E 4.25%-5% SOLUTION 1,000 ML IV SCH (12:35)
[2019-08-17] MEDS: LOVENOX SUBQ SCH (16:06)
[2019-08-17] MEDS ORDERED: DULCOLAX PR SCH (21:00)
[2019-08-18] MEDS: CLINIMIX E 4.25%-5% SOLUTION 1,000 ML IV SCH ×2 (00:06→09:10)
[2019-08-18] MEDS: FLAGYL 500 MG/NS 500 MG/100 ML IVPB IV SCH ×3 (00:06→15:35)
[2019-08-18] MEDS: DILAUDID IV PRN ×8 (00:21→22:06)
[2019-08-18] MEDS: ZOFRAN IV PRN (03:38)
[2019-08-18] MEDS: MAXIPIME 2 GM/NS 2 GM/100 ML IVPB IV SCH ×2 (03:39→14:58)
[2019-08-18] MEDS: ZOFRAN PO SCH ×3 (03:41→18:31)
[2019-08-18 05:22] LABS: AGAP 12; BUN 10 mg/dL (8-22); CALCIUM 9.1 mg/dL (8.8-10.2); CHLORIDE 98 mmol/L (98-107); COSMO 279; CREATININE 0.6 mg/dL (0.7-1.2); ESTIMATED GFR > 60; GLUCOSE 138 mg/dL (70-104); MAGNESIUM 2.1 mg/dL (1.5-2.7); POTASSIUM 4.2 mmol/L (3.5-5.1); SODIUM 139 mmol/L (136-145); TCO2 29 mmol/L (25-35)
[2019-08-18] MEDS: PRILOSEC PO SCH (06:25)
--- NOTE | 2019-08-18 08:46 | Diag Imaging Result Doc PS360 ---
ABDOMEN FLAT/UPRIGHT - 08/18/2019 INDICATION: Follow up SBO COMPARISON: 08/17/2019 FINDINGS: There is a severe distal small bowel obstruction. There is enteric contrast that still has not moved in the distal small bowels. There are numerous air-fluid levels on the upright view. IMPRESSION: Severe small bowel obstruction. Electronically signed by Bryce Villalpando 08/18/2019 8:44 AM
[2019-08-18] MEDS: LACTULOSE PO SCH ×2 (08:54→22:07)
[2019-08-18] MEDS: MIRALAX PO SCH ×2 (08:54→22:08)
[2019-08-18] MEDS ORDERED: GOLYTELY PO ONE (12:43)
--- NOTE | 2019-08-18 13:25 | PROGRESS NOTE ---
DATE: 08/18/2019 SUBJECTIVE: Patient admitted on 08/14/2019 for abdominal pain. He does not have a primary care physician. This is a 34-year-old, male with history of metastatic pancreatic and peritoneal carcinomatosis, hypertension, presents to the emergency room from Dr. Adams's office, complaining of right upper quadrant epigastric cramping that has been present for 2 weeks. States it has increased in intensity, and taking longer to relax over the last few days. He underwent CT and HIDA scan and I think an ultrasound this past month. PAST MEDICAL HISTORY: 1. Pancreatic cancer with peritoneal carcinomatosis. 2. Constipation. He has not gone to the bathroom in 5 days. 3. Hypertension. 4. Diverticulosis. They are trying lactulose and MiraLAX, and I am going to try a little Colyte and see if we can sip on that. He has not had any results yet. OBJECTIVE: Vital Signs: Temp is 97.7 degrees, pulse 92, respirations 18, blood pressure 142/100. HEENT: Pupils are equal. Neck: No distended neck veins. Lungs: Clear in all lung santiago. Cardiovascular: Regular rhythm and rate without murmur or S3. Abdomen: Soft. When he points to where he is hurting, just right across the mid abdomen, all across. Skin: Warm and dry. Extremities: No pedal edema. ASSESSMENT AND PLAN: Note, he had an abdominal x-ray. Severe distal small-bowel obstruction was noted. There is enteric contrast that still has not moved in the distal small bowel. There is numerous air flow in the upper view. I thought we would try some Colyte and see if it will help. He had to turn off the Clinimix. He just felt like he was retaining fluid, and he did not like the bloating feeling or the swelling feeling in his hands and feet. He has underlying pancreatic cancer with peritoneal carcinomatosis. Surgery has recommended conservative management at this time, so we will try a little Colyte and see if that will help anything. REVIEW OF ORDERS: He is getting Dilaudid 1 to 2 mg IV every 3 hours p.r.n., he is on a fentanyl patch 12 mcg every 72 hours, he is on Flagyl 500 mg IV every 8 hours, lactulose 30 mL twice a day, cefepime 2 grams IV every 12 hours, MiraLAX 17 grams b.i.d., and we have stopped the Clinimix. LABORATORY DATA: Today, I do not see any change. Sodium 139, potassium 4.2, chloride 98, bicarb 29, BUN 10, creatinine 0.6, blood sugar 90, 88, and 138. cc: Narendra Wood MD
[2019-08-18] MEDS: DURAGESIC 12 MICROGM/HR PATCH TD SCH (14:50)
[2019-08-18] MEDS: LOVENOX SUBQ SCH (15:36)
[2019-08-19] MEDS: FLAGYL 500 MG/NS 500 MG/100 ML IVPB IV SCH ×3 (00:15→15:46)
[2019-08-19] MEDS: DILAUDID IV PRN ×6 (01:23→20:43)
[2019-08-19] MEDS: ZOFRAN IV PRN ×3 (01:28→14:20)
[2019-08-19] MEDS: ZOFRAN PO SCH ×3 (03:49→20:01)
[2019-08-19] MEDS: MAXIPIME 2 GM/NS 2 GM/100 ML IVPB IV SCH ×2 (03:49→15:46)
[2019-08-19] MEDS: PRILOSEC PO SCH ×2 (05:29→09:21)
[2019-08-19] MEDS: MIRALAX PO SCH ×2 (09:11→20:01)
[2019-08-19] MEDS: LACTULOSE PO SCH ×2 (09:11→20:01)
--- NOTE | 2019-08-19 13:15 | PROGRESS NOTE ---
DATE: 08/19/2019 SUBJECTIVE: Mr. Maharaj says he has had some bowel activity, but his abdomen still hurts about the same. OBJECTIVE: Vital Signs: He remains afebrile, temperature 98.2 degrees, pulse 88, respirations 18, blood pressure 142/107, but his blood pressures have been 130/85, 130/91, 131/95, 148/93. HEENT: Pupils are equal and round. Lungs: Clear in all lung santiago. Cardiovascular: Regular rhythm and rate without murmur or S3. ASSESSMENT AND PLAN: 1. Pancreatic cancer with peritoneal carcinomatosis. 2. Constipation, which seems to be improving. Continue the Colyte. He still has kind of diffuse abdominal pain. 3. Hypertension. Blood pressure appears well controlled. 4. Continued abdominal pain. I am not sure if this is due to the carcinomatosis. He is not eating anything right now, nothing by mouth. He is getting Dilaudid 1 to 2 mg intravenously every [address] Adams is his oncologist, and Surgery is Dr. Daniel Staley. He is getting fentanyl 12 mcg patch every 72 hours, Flagyl 500 mg intravenously every 8 hours, lactulose 30 mL twice daily, cefepime 2 grams intravenously every 12 hours, Prilosec 20 mg daily, MiraLAX 17 grams by mouth twice daily, and then we are giving the Colyte, drinking a little bit every hour. cc: Narendra Wood MD
[2019-08-19] MEDS: LOVENOX SUBQ SCH (15:46)
--- NOTE | 2019-08-19 21:04 | GENERAL SURGERY PROGRESS NOTE ---
DATE: 08/19/2019 SUBJECTIVE: He is having bowel function. Denies any nausea, vomiting. He continues to have intermittent colicky abdominal pain he indicates low in his abdomen, no fevers. Pulse 86, blood pressure 136/91, oxygen saturation 98% on room air. General: Is alert. Cardiovascular: Normal rate. Abdomen: Soft, nontender, mildly distended but no peritonitis. LABS: I reviewed his labs. Electrolytes are okay yesterday. I reviewed plain film abdominal x- ray that shows persistent air-fluid levels throughout the small bowel. ASSESSMENT AND PLAN: This is a 34-year-old gentleman with apparent partial malignant obstruction of the small intestine. I do not think that this is biliary in etiology, unfortunately I worry that this will be a persistent issue for the rest of his life without a good surgical option. During his previous operation he had dense adhesions throughout the abdomen prohibiting really any access into the abdomen and I am doubtful that any form of palliative bypass would be beneficial. He is being giving gentle bowel preparation. We will see how this does. Otherwise he is on fentanyl patch for pain. He has also been treated for possible spontaneous peritonitis, although I am not sure based on his exam this is the case. Will follow along. cc: Janet Browne MD
[2019-08-20] MEDS: DILAUDID IV PRN ×7 (00:10→20:43)
[2019-08-20] MEDS: FLAGYL 500 MG/NS 500 MG/100 ML IVPB IV SCH ×3 (00:10→16:11)
[2019-08-20] MEDS: MAXIPIME 2 GM/NS 2 GM/100 ML IVPB IV SCH ×2 (02:03→15:17)
[2019-08-20] MEDS: ZOFRAN PO SCH ×3 (04:52→20:22)
[2019-08-20] MEDS: PRILOSEC PO SCH (06:23)
--- NOTE | 2019-08-20 07:13 | PROGRESS NOTE ---
DATE: 08/20/2019 SUBJECTIVE: He reports that he is feeling better, a little less pain. His bowels have been moving. He was refusing the Clinimix. Complained of still feeling some bloating. Remains afebrile. OBJECTIVE: Temperature 97.6 degrees, pulse 87, respirations 16, blood pressure 142/99. Pupils are equal and round. Lungs are clear in all lung santiago. Cardiovascular Examination: Regular rhythm and rate without murmur or S3. Abdomen is soft. Skin is warm and dry. Urine output was good, at least 500 mL. ASSESSMENT AND PLAN: 1. Pancreatic cancer with malignant ascites and carcinomatosis. Currently, he is getting Gemzar. Cycle 1, day 15 was given on 07/25/2019. 2. Partial small-bowel obstruction and constipation. He was given some Colyte which seems to be helping. 3. Nonfilling of gallbladder per HIDA scan. It could be questionable etiology or could be related to metastatic disease versus gallstones. 4. I am going to try and give him a full liquid diet. He is requesting coffee and something to drink. LABORATORY DATA: Reviewed from the . His electrolytes from yesterday, sodium 139, potassium 4.2, chloride 98, BUN 10, creatinine 0.6. REVIEW HIS CURRENT ORDERS: He is getting Dilaudid 1 to 2 mg IV q.3 hours p.r.n., fentanyl patch 12 mcg patch q.72 hours, Flagyl 500 mg IV q.8 hours, lactulose 30 mL twice a day, cefepime 2 g IV q.12, MiraLAX 17 g twice a day. cc: Narendra Wood MD
[2019-08-20] MEDS: ZOFRAN IV PRN ×2 (08:22→15:17)
[2019-08-20] MEDS: MIRALAX PO SCH ×2 (08:24→20:22)
[2019-08-20] MEDS: LACTULOSE PO SCH ×2 (08:24→20:22)
[2019-08-20] MEDS ORDERED: DURAGESIC 25 MICROGM/HR PATCH TD SCH (12:30)
[2019-08-20] MEDS: LOVENOX SUBQ SCH (16:12)
[2019-08-21] MEDS: FLAGYL 500 MG/NS 500 MG/100 ML IVPB IV SCH ×3 (00:03→16:35)
[2019-08-21] MEDS: DILAUDID IV PRN ×7 (00:03→22:17)
[2019-08-21] MEDS: ZOFRAN PO SCH ×3 (03:28→20:44)
[2019-08-21] MEDS: MAXIPIME 2 GM/NS 2 GM/100 ML IVPB IV SCH ×2 (03:28→15:57)
[2019-08-21] MEDS: PRILOSEC PO SCH ×2 (05:49→06:14)
[2019-08-21] MEDS: MIRALAX PO SCH ×2 (08:41→20:44)
[2019-08-21] MEDS: LACTULOSE PO SCH ×2 (08:41→20:44)
[2019-08-21] MEDS ORDERED: DURAGESIC 50 MICROGM/HR PATCH TD SCH (08:45)
--- NOTE | 2019-08-21 08:59 | PROGRESS NOTE ---
DATE: 08/21/2019 Mr. Maharaj is complaining of abdominal pain. He wants his pain medicine to go up. His bowels are moving. He is not getting that much, but he is really complaining of pain. OBJECTIVE: Vital Signs: Temperature 98.1 degrees, pulse 87, respirations 20, blood pressure 148/99. HEENT: Pupils are equal and round. Lungs: Are clear in all lung santiago. Cardiovascular exam: Regular rhythm and rate without murmur or S3. ASSESSMENT AND PLAN: Apparent partial malignant obstruction of small intestine. Dr. Browne has evaluated. Does not feel IT is biliary etiology and this may be a persistent issue for the rest of his life without good surgical options. He during the previous operation had dense adhesions throughout the abdomen preventing really any access to the abdomen and Dr. Browne is doubtful that any form of palliative bypass would be beneficial. He is complaining of more pain. I think it would be good to get a palliative care consult. He has pancreatic cancer with peritoneal carcinomatosis and right now he is on fentanyl patch 25 mg q.72 hours. I think we can go up on the fentanyl patch and he is getting Dilaudid 1 to 2 mg IV q.3 hours already. We have him on cefepime 2 g IV q.12. I just think prognosis looks very poor. cc: Narendra Wood MD
[2019-08-21] MEDS: LOVENOX SUBQ SCH (16:36)
[2019-08-22] MEDS: FLAGYL 500 MG/NS 500 MG/100 ML IVPB IV SCH ×3 (00:15→15:03)
[2019-08-22] MEDS: DILAUDID IV PRN ×8 (01:25→23:44)
[2019-08-22] MEDS: MAXIPIME 2 GM/NS 2 GM/100 ML IVPB IV SCH ×2 (03:52→15:04)
[2019-08-22] MEDS: ZOFRAN PO SCH ×3 (03:52→20:03)
[2019-08-22] MEDS: PRILOSEC PO SCH (06:48)
[2019-08-22] MEDS: MIRALAX PO SCH ×2 (09:21→20:03)
[2019-08-22] MEDS: LACTULOSE PO SCH ×2 (09:21→20:03)
--- NOTE | 2019-08-22 13:15 | PROGRESS NOTE ---
DATE: 08/22/2019 SUBJECTIVE: He is still complaining of pain and no relief of pain or very little. He would like the IV pain medicine. He wanted me to talk to his ex-, and I did. I did explain that my understanding was that his pain may well be from the cancer in his belly--carcinomatosis. I talked to Dr. Browne at length. He said he would not be a candidate for cholecystectomy or any kind of bowel surgery due to the fibrosis and scarring in the abdomen. Dr. Browne's opinion is that this pain is coming from peritoneal carcinomatosis. I will try and get him comfortable, and will see if we can give him some IV pain medicine and then discussions with Dr. Adams about the direction we are going to go. OBJECTIVE: Vital Signs: Temperature 98.0 degrees, pulse 98, respirations 17, blood pressure 141/104. HEENT: Pupils are equal and round. Lungs: Clear in all lung santiago. Cardiovascular exam: Regular rhythm and rate without murmur or S3. ASSESSMENT AND PLAN: A partial malignant obstruction of the small intestine. Dr. Browne does not believe this is biliary etiology. I am not sure we know for sure the primary. Dr. Browne has done previous operation. He has dense adhesions throughout the abdomen. There was not really any access to the abdomen, and does not feel like there is any form of palliative bypass or that cholecystectomy is an option. We will work on his pain control and, while his oral intake is poor, I have gone up on his fentanyl to 50 mcg, and I will go up to the next size and see if it will help. In the meantime, he is getting Dilaudid 1 to 2 mg intravenous every 3 hours. We are giving him MiraLAX 17 grams oral twice a day. We have him on some empiric antibiotic, cefepime 2 grams intravenous every 12 hours. cc: Narendra Wood MD
[2019-08-22] MEDS: LOVENOX SUBQ SCH (15:04)
[2019-08-22] MEDS: NORCO-10 PO PRN (18:08)
[2019-08-23] MEDS: FLAGYL 500 MG/NS 500 MG/100 ML IVPB IV SCH ×3 (01:14→16:59)
[2019-08-23] MEDS: DILAUDID IV PRN ×5 (02:35→22:56)
[2019-08-23] MEDS: MAXIPIME 2 GM/NS 2 GM/100 ML IVPB IV SCH ×2 (04:24→15:58)
[2019-08-23] MEDS: ZOFRAN PO SCH ×3 (04:24→20:47)
[2019-08-23] MEDS: NORCO-10 PO PRN ×2 (04:25→11:55)
[2019-08-23] MEDS: PRILOSEC PO SCH (06:21)
[2019-08-23] MEDS: LACTULOSE PO SCH ×2 (08:29→20:47)
[2019-08-23] MEDS: MIRALAX PO SCH ×2 (08:29→20:48)
--- NOTE | 2019-08-23 15:46 | PROGRESS NOTE ---
DATE: 08/23/2019 SUBJECTIVE: Mr. Maharaj is still in quite a bit of discomfort. He has had some bowel movements. He is able to get a little bit of liquids and food down. I am going to discuss with Dr. Adams. We are not going to be able to do a cholecystectomy and he has extensive fibrosis and scarring in his abdomen. OBJECTIVE: Afebrile. Temperature 97.5 degrees, pulse 104, respirations 18, blood pressure 137/103. Pupils are equal and round. Lungs are clear in all lung santiago. Cardiovascular regular rhythm and rate without murmur or S3. Abdomen is soft. Skin is warm and dry. Urine output is 1200 mL. ASSESSMENT AND PLAN: 1. Malignant peritoneal infection with extensive disease and partial obstruction from his cancer. Dr. Browne does not believe the pain is from his gallbladder and does not feel that is an option given the extensive fibrosis and amount of disease in his abdomen. We are going to try improve his nutrition with TPN, see if we can set up for home health with TPN. 2. He is only getting pain control with IV pain medicine. I have gone up on the fentanyl 50 mcg q. 72 hours and start him on hydrocodone 10 mg q.4 hours. The p.o. pain medicine does not do much so we will see if maybe OxyIR does a little better. 3. We will keep him on stool softeners and try and set up for home health with TPN and get nutrition involved. cc: Narendra Wood MD
[2019-08-23 16:35] LABS: AGAP 13; ALB/GLOB RATIO 1.2; ALBUMIN 3.3 g/dL (3.5-5.0); ALKALINE PHOSPHATASE 101 U/L (32-122); BUN 11 mg/dL (8-22); CALCIUM 8.8 mg/dL (8.8-10.2); CHLORIDE 99 mmol/L (98-107); COSMO 280; CREATININE 0.5 mg/dL (0.7-1.2); ESTIMATED GFR > 60; GLUCOSE 115 mg/dL (70-104); GOT 19 U/L (10-34); GPT 20 U/L (10-44); MAGNESIUM 2.1 mg/dL (1.5-2.7); PHOSPHORUS 3.5 mg/dL (2.7-4.5); POTASSIUM 3.5 mmol/L (3.5-5.1); SODIUM 140 mmol/L (136-145); TCO2 28 mmol/L (25-35); TOTAL BILIRUBIN 0.17 mg/dL (0.20-1.00)
[2019-08-23] MEDS: DURAGESIC 75 MICROGM/HR PATCH TD SCH (16:58)
[2019-08-23] MEDS: LOVENOX SUBQ SCH (16:59)
[2019-08-23] MEDS ORDERED: TPN ELECTROLYTES 20 ML, MAGNESIUM SULFATE 5 MEQ, POTASSIUM CHLORIDE 40 MEQ, SODIUM PHOS... IV SCH ×8 (20:00)
[2019-08-23] MEDS: PERCOCET-10 PO PRN (20:47)
[2019-08-23] MEDS: LIPOSYN 20% 250 ML IV SCH (20:47)
[2019-08-24] MEDS: FLAGYL 500 MG/NS 500 MG/100 ML IVPB IV SCH ×4 (00:21→23:37)
[2019-08-24] MEDS: PERCOCET-10 PO PRN (01:39)
[2019-08-24] MEDS: DILAUDID IV PRN ×7 (03:38→23:30)
[2019-08-24] MEDS: ZOFRAN PO SCH ×4 (04:58→18:57)
[2019-08-24] MEDS: MAXIPIME 2 GM/NS 2 GM/100 ML IVPB IV SCH ×2 (04:58→16:22)
[2019-08-24] MEDS: PRILOSEC PO SCH (06:52)
[2019-08-24] MEDS: LACTULOSE PO SCH ×2 (08:33→20:17)
[2019-08-24] MEDS: MIRALAX PO SCH ×2 (08:33→20:17)
[2019-08-24 08:59] LABS: AGAP 11; BUN 10 mg/dL (8-22); CALCIUM 8.8 mg/dL (8.8-10.2); CHLORIDE 100 mmol/L (98-107); CHOLESTEROL 87 mg/dL (0-200); COSMO 278; CREATININE 0.5 mg/dL (0.7-1.2); ESTIMATED GFR > 60; GLUCOSE 149 mg/dL (70-104); GOT 15 U/L (10-34); MAGNESIUM 2.2 mg/dL (1.5-2.7); PHOSPHORUS 3.5 mg/dL (2.7-4.5); POTASSIUM 3.4 mmol/L (3.5-5.1); SODIUM 138 mmol/L (136-145); TCO2 27 mmol/L (25-35); TRIGLYCERIDES 105 mg/dL (39-160)
[2019-08-24 09:34] LABS: PREALBUMIN 8.7 mg/dL (20-40)
--- NOTE | 2019-08-24 11:26 | PROGRESS NOTE ---
DATE: 08/24/2019 SUBJECTIVE: Mr. Maharaj still hurts quite a bit in his belly. He is not able to eat much. His bowels are moving some. His abdomen appears soft, and there is no ascites appreciated. PHYSICAL EXAMINATION: Vital signs: On exam today, he remains afebrile. Temperature 97.4 degrees, pulse 100, respirations 18, blood pressure 129/90. Eyes: Pupils are equal. Neck: No distended neck veins. Lungs: Clear anterolateral and posterior. Cardiovascular exam: Regular rhythm and rate without murmur or S3. Abdomen: Soft. Skin: Warm and dry. : Urine output was 400 mL. ASSESSMENT AND PLAN: 1. Pancreatic cancer with carcinomatosis, status post Gemzar on 07/25/2019. No treatment since that time. 2. Partial small bowel obstruction ongoing. Surgery is following. He has extensive carcinomatosis. Not able to do cholecystectomy or any diversion type treatment because of extensive scarring and carcinomatosis, and so continue pain management. 3. Nonfilling of the gallbladder. Dr. Browne does not feel this pain is coming from his biliary track and not able to perform cholecystectomy in this setting, so we will continue to treat him symptomatically. 4. Severe protein calorie malnutrition. We are going to start some total parenteral nutrition, and we are going up gradually on his fentanyl patch. I have been giving him oral oxycodone 10 mg every 4 hours as needed. We will go up on the fentanyl patch to 100 mcg. I am going to keep him here today at 75 mcg. He is on cefepime 2 grams intravenous every 12 hours and Flagyl 500 mg intravenous every 8 hours. cc: Narendra Wood MD
[2019-08-24] MEDS: LOVENOX SUBQ SCH (16:22)
[2019-08-24] MEDS: POTASSIUM CHLORIDE IV SCH ×8 (20:25)
[2019-08-24] MEDS: [UNRECOGNIZED DRUG - OTHER] IV SCH ×8 (20:25)
[2019-08-24] MEDS: MAGNESIUM SULFATE IV SCH ×8 (20:25)
[2019-08-24] MEDS: LIPOSYN 20% 250 ML IV SCH (20:25)
[2019-08-24] MEDS: TPN ELECTROLYTES IV SCH ×8 (20:25)
[2019-08-25] MEDS: ZOFRAN PO SCH ×3 (03:29→20:32)
[2019-08-25] MEDS: DILAUDID IV PRN ×7 (03:29→23:35)
[2019-08-25] MEDS: MAXIPIME 2 GM/NS 2 GM/100 ML IVPB IV SCH (03:29)
[2019-08-25 05:54] LABS: AGAP 13; BUN 11 mg/dL (8-22); CALCIUM 8.8 mg/dL (8.8-10.2); CHLORIDE 101 mmol/L (98-107); COSMO 283; CREATININE 0.5 mg/dL (0.7-1.2); ESTIMATED GFR > 60; GLUCOSE 115 mg/dL (70-104); MAGNESIUM 1.9 mg/dL (1.5-2.7); PHOSPHORUS 3.8 mg/dL (2.7-4.5); POTASSIUM 3.7 mmol/L (3.5-5.1); SODIUM 142 mmol/L (136-145); TCO2 28 mmol/L (25-35)
[2019-08-25] MEDS: PRILOSEC PO SCH (06:38)
[2019-08-25] MEDS: LACTULOSE PO SCH ×2 (09:43→20:33)
[2019-08-25] MEDS: FLAGYL 500 MG/NS 500 MG/100 ML IVPB IV SCH (09:43)
[2019-08-25] MEDS: MIRALAX PO SCH ×2 (09:43→20:32)
--- NOTE | 2019-08-25 10:54 | PROGRESS NOTE ---
DATE: 08/25/2019 SUBJECTIVE: Mr. Maharaj says he feels a little better. His bowels are moving. OBJECTIVE: Vital Signs: His temp is 97.5 degrees, pulse 109, respirations 18, blood pressure 145/109. HEENT: Pupils are equal and round. Lungs: Clear in all lung santiago. Cardiovascular: Regular rhythm and rate without murmur or S3. Abdomen: Soft. Skin: Warm and dry. LABORATORY DATA: Blood sugar 141, 122, 94. ASSESSMENT AND PLAN: 1. Pancreatic cancer with carcinomatosis. He has received a round of Gemzar on 07/25/2019. 2. Partial small-bowel obstruction. He seems to be clinically a little better. He has poor function of gallbladder, but he does not appear to be a surgical candidate because of the extensive carcinomatosis. 3. Severe protein calorie malnutrition. Attempting total parenteral nutrition. I have tried to get him on oral pain medicine. His fentanyl, he is getting 75 mcg every 72 hours, and he has oxycodone 10 mg every 4 hours as needed. Will continue the MiraLAX and lactulose. cc: Narendra Wood MD
[2019-08-25] MEDS: LOVENOX SUBQ SCH (16:25)
[2019-08-25] MEDS: LIPOSYN 20% 250 ML IV SCH (23:33)
[2019-08-25] MEDS: MAGNESIUM SULFATE IV SCH ×8 (23:39)
[2019-08-25] MEDS: POTASSIUM CHLORIDE IV SCH ×8 (23:39)
[2019-08-25] MEDS: [UNRECOGNIZED DRUG - OTHER] IV SCH ×8 (23:39)
[2019-08-25] MEDS: TPN ELECTROLYTES IV SCH ×8 (23:39)
[2019-08-26] MEDS: DILAUDID IV PRN ×5 (02:43→16:36)
[2019-08-26] MEDS: ZOFRAN PO SCH ×3 (02:43→19:45)
[2019-08-26] MEDS: PRILOSEC PO SCH (06:04)
[2019-08-26 07:00] LABS: AGAP 14; BUN 11 mg/dL (8-22); CALCIUM 9.2 mg/dL (8.8-10.2); CHLORIDE 99 mmol/L (98-107); COSMO 281; CREATININE 0.5 mg/dL (0.7-1.2); ESTIMATED GFR > 60; GLUCOSE 113 mg/dL (70-104); MAGNESIUM 2.2 mg/dL (1.5-2.7); PHOSPHORUS 3.9 mg/dL (2.7-4.5); POTASSIUM 4.3 mmol/L (3.5-5.1); SODIUM 141 mmol/L (136-145); TCO2 28 mmol/L (25-35)
[2019-08-26] MEDS: MIRALAX PO SCH ×2 (08:20→21:17)
[2019-08-26] MEDS: LACTULOSE PO SCH ×2 (08:20→21:17)
[2019-08-26] MEDS: DURAGESIC 75 MICROGM/HR PATCH TD SCH (15:43)
[2019-08-26] MEDS: LOVENOX SUBQ SCH (16:50)
--- NOTE | 2019-08-26 17:01 | PROGRESS NOTE ---
DATE: 08/26/2019 SUBJECTIVE: He is hurting still. Not getting much intake at all. He did not like the fluids that were involved in TPN. I did discuss with his . They want to discuss the plan and situation with Dr. Adams. His is considering taking him back to [place]. OBJECTIVE: Vital signs: He remains afebrile, temperature 97.6 degrees, pulse 105, respirations 18, blood pressure 140/110. HEENT: Pupils are equal and round. Lungs: Clear in all lung santiago. Cardiovascular: Regular rhythm and rate without murmur or S3. Abdomen: Soft. Skin: Warm and dry. ASSESSMENT AND PLAN: Pancreatic cancer with carcinomatosis and peritoneal intra-abdominal cancer with lots of scar tissue. He has had 1 round of Gemzar on 07/25/2019. He has a partial small bowel obstruction. His bowels are moving some. He is not able to eat much. He has severe protein calorie malnutrition. Have wanted to try and pursue TPN. This will be difficult. He has no insurance. Trying to go up on his pain medicine to give him medicine that he can take at home and be able to tolerate. In difficult position. He wants to discuss what to do with Dr. Adams. cc: Narendra Wood MD
[2019-08-26] MEDS ORDERED: NARCAN IV PRN (17:15)
[2019-08-26] MEDS ORDERED: D10W 1,000 ML IV SCH (18:30)
[2019-08-26] MEDS: LR 1,000 ML IV SCH (20:18)
[2019-08-26] MEDS: DILAUDID PCA VIAL IV PRN (20:20)
[2019-08-27] MEDS: TPN ELECTROLYTES IV SCH ×8 (00:10)
[2019-08-27] MEDS: POTASSIUM CHLORIDE IV SCH ×8 (00:10)
[2019-08-27] MEDS: [UNRECOGNIZED DRUG - OTHER] IV SCH ×8 (00:10)
[2019-08-27] MEDS: MAGNESIUM SULFATE IV SCH ×8 (00:10)
[2019-08-27] MEDS: ZOFRAN PO SCH ×3 (04:38→20:24)
[2019-08-27 06:02] LABS: AGAP 8; BUN 11 mg/dL (8-22); CALCIUM 8.8 mg/dL (8.8-10.2); CHLORIDE 99 mmol/L (98-107); COSMO 277; CREATININE 0.6 mg/dL (0.7-1.2); ESTIMATED GFR > 60; GLUCOSE 141 mg/dL (70-104); POTASSIUM 4.1 mmol/L (3.5-5.1); SODIUM 138 mmol/L (136-145); TCO2 31 mmol/L (25-35)
[2019-08-27] MEDS: PRILOSEC PO SCH (06:09)
[2019-08-27] MEDS: MIRALAX PO SCH ×2 (09:41→20:24)
[2019-08-27] MEDS: LACTULOSE PO SCH ×2 (09:41→20:24)
--- NOTE | 2019-08-27 13:53 | PROGRESS NOTE ---
DATE: 08/27/2019 SUBJECTIVE: Mr. Maharaj says he actually feels better today, less pain. He is getting the TPN. OBJECTIVE: Vital signs: He remains afebrile, temperature 97.9 degrees, pulse 100, respirations 16, blood pressure 116/86. HEENT: Pupils are equal and round. Lungs: Clear in all lung santiago. Cardiovascular: Regular rate without murmur or S3. Weight 146 pounds. ASSESSMENT AND PLAN: 1. Pancreatic cancer, carcinomatosis, peritoneal scarring. He got 1 round of Gemzar. We are going to try some TPN. The plan is to proceed with chemotherapy when his nutritional status improves. 2. He has a partial-small bowel obstruction which seems to be doing a little bit better and it is likely this is secondary to his metastatic disease. 3. Nonfilling gallbladder, nonsurgical. 4. Persistent abdominal pain. 5. Protein calorie malnutrition, so trying to figure out where he will go from here and if we will be able to set up home TPN. cc: Narendra Wood MD
[2019-08-27] MEDS: LOVENOX SUBQ SCH (16:40)
[2019-08-27] MEDS: LR 1,000 ML IV SCH (18:11)
[2019-08-27] MEDS: DILAUDID PCA VIAL IV PRN (20:44)
[2019-08-28] MEDS: MAGNESIUM SULFATE IV SCH ×8 (01:00)
[2019-08-28] MEDS: TPN ELECTROLYTES IV SCH ×8 (01:00)
[2019-08-28] MEDS: POTASSIUM CHLORIDE IV SCH ×8 (01:00)
[2019-08-28] MEDS: [UNRECOGNIZED DRUG - OTHER] IV SCH ×8 (01:00)
[2019-08-28] MEDS: ZOFRAN PO SCH ×3 (03:26→20:07)
[2019-08-28 06:08] LABS: AGAP 12; BUN 11 mg/dL (8-22); CALCIUM 8.9 mg/dL (8.8-10.2); CHLORIDE 98 mmol/L (98-107); COSMO 282; CREATININE 0.5 mg/dL (0.7-1.2); ESTIMATED GFR > 60; GLUCOSE 124 mg/dL (70-104); MAGNESIUM 2.1 mg/dL (1.5-2.7); PHOSPHORUS 4.2 mg/dL (2.7-4.5); POTASSIUM 4.3 mmol/L (3.5-5.1); SODIUM 141 mmol/L (136-145); TCO2 31 mmol/L (25-35)
[2019-08-28] MEDS: PRILOSEC PO SCH (06:32)
[2019-08-28] MEDS: MIRALAX PO SCH ×2 (08:26→20:07)
[2019-08-28] MEDS: LACTULOSE PO SCH ×2 (08:26→20:07)
[2019-08-28 10:27] LABS: BASO# 0.02 X1000 (0.0-0.2); BASO% 0.2 % (0.0-0.8); EOS# 0.11 X1000 (0.0-0.7); EOS% 1.1 % (0.0-10.0); HEMATOCRIT 43.2 % (42.0-52.0); HEMOGLOBIN 13.3 g/dL (14.0-18.0); IMM GRAN# 0.02 X1000 (0.0-0.04); IMM GRAN% 0.2 % (0.0-0.5); LYMPH# 1.01 X1000 (1.2-3.4); LYMPH% 10.2 % (20.5-51.1); MCH 25.6 PG (27-31); MCHC 30.8 g/dL (33-37); MCV 83.2 FL (81-99); MONO# 1.54 X1000 (0.11-0.59); MONO% 15.6 % (1.7-9.3); MPV 10.6 FL (7.4-10.4); NEUT# 7.18 X1000 (1.4-6.5); NEUT% 72.7 % (42.2-75.2); PLT 300 X1000 (130-400); RBC 5.19 XMIL (4.7-6.1); RDW 18.1 % (11.5-14.5); WBC 9.88 X1000 (4.8-10.8)
--- NOTE | 2019-08-28 12:35 | EKG Report ---
Test Performed on : 08/28/2019 12:25:11 PM Test Reason : Evaluate for heart rhythm Blood Pressure : / mmHG Vent. Rate : 134 BPM Atrial Rate : 134 BPM P-R Int : 114 ms QRS Dur : 072 ms QT Int : 286 ms P-R-T Axes : 017 011 008 degrees QTc Int : 427 ms Sinus tachycardia. Minimal voltage criteria for LVH, may be normal variant Nonspecific T wave abnormality Abnormal ECG Confirmed by Alejandra Jones MD ([id number]) on 08/29/2019 8:10:09 AM
--- NOTE | 2019-08-28 13:00 | PROGRESS NOTE ---
DATE: 08/28/2019 INTERVAL HISTORY: No acute events overnight. SUBJECTIVE: Mr. Maharaj feels as if his heart is beating really fast. His [id number] and jtfnru-[id number]-nut at bedside were the only family members he has around. Mr. Maharaj denies any chest pain, shortness of breath, or cough. He denies any vomiting, though he is nauseous. He feels his abdomen is full. I encouraged him to drink GoLYTELY. OBJECTIVE: Current Vital Signs: Temperature of 98.3 degrees, pulse 130, respiratory rate 12, blood pressure 140/111, he is saturating 97% room air. General: Not in acute distress. HEENT: Oral cavity is moist. Lungs: He has decreased air entry, bilateral infrascapular region. No crackles. He has a right-sided chest port. Cardiovascular: S1, S2 normal. Tachycardic, regular. No murmur or gallop. Abdomen: Soft, distended. Generalized tenderness. Hypoactive bowel sounds. Extremities: No lower extremity edema. Neurologic: He is alert and oriented x3. LABORATORY DATA: WBC of 9000, hemoglobin 13.3, platelets 300,000. Electrolytes suggest a potassium of 4.3, BUN 11, creatinine 0.7. MICROBIOLOGY: No new data. IMAGING: No new imaging. ASSESSMENT AND PLAN: 1. Tachycardia. It could be related to intra-abdominal pain. However, I will rule out any infectious etiology, so get urinalysis, chest x-ray, lactate, blood culture, and abdominal x- ray. He is receiving intravenous total parenteral nutrition. If needed, I may give him additional intravenous fluids. 2. Pancreatic cancer with carcinomatosis and peritoneal scarring leading to generalized abdominal pain. He received a dose of Gemzar. Oncology team on board. Continue intravenous hydromorphone patient-controlled analgesia pump for his pain. 3. Partial small-bowel obstruction, likely due to malignant stricture. Continue GoLYTELY to have bowel movements. Nonsurgical management is recommended at the moment considering he has had multiple difficult to resect adhesions in the past. 4. Protein energy malnutrition. Continue oral intake as tolerated, and total parenteral nutrition. 5. Continue fentanyl patch for abdominal pain, and lactulose for constipation as well, along with Percocet. 6. Disposition. Continue to monitor the patient inside the hospital. We are currently awaiting sending him home on patient-controlled analgesia intravenous pump. [employer] on board. Unfortunately, the patient does not have insurance. I will have a detailed discussion about Oncology team to see if we could also consider intensifying his oral pain medication regimen. Plan of care discussed with the patient. I also discussed with his smnxkty-cl-oob and sister- in-law about his guarded prognosis. They informed me that the patient's wishes were to go back to [place] to see his mother eventually. cc: Brandin Galloway MD
--- NOTE | 2019-08-28 13:42 | Diag Imaging Result Doc PS360 ---
EXAM: CHEST-2 VIEWS HISTORY: Evaluate for bilateral lower lobe pneumonia TECHNIQUE: Two views COMPARISON: None. FINDINGS: Poor inspiratory effort. No cardiomegaly. No pulmonary edema. No pleural effusions. There is basilar atelectasis. Right jugular portacatheter. No pneumothorax. IMPRESSION: No definite pneumonia although there is basilar atelectasis. Electronically signed by Norm Beaver 08/28/2019 1:39 PM
--- NOTE | 2019-08-28 14:01 | Diag Imaging Result Doc PS360 ---
EXAM: ABDOMEN FLAT/UPRIGHT HISTORY: Abdominal pain TECHNIQUE: Two views COMPARISON: 08/18/2019 FINDINGS: There are mildly distended bowel loops within the abdomen. Moderate to prominent feculent material in the mid abdomen. No organomegaly. No free air beneath the diaphragm. No foreign body. IMPRESSION: Recurrent bowel obstruction. Electronically signed by Norm Beaver 08/28/2019 1:59 PM
[2019-08-28] MEDS: LOVENOX SUBQ SCH (15:28)
[2019-08-28] MEDS: LR 1,000 ML IV SCH ×2 (17:32→22:28)
[2019-08-28 20:39] LABS: URINE SOURCE CLEAN CATCH
[2019-08-28 20:52] LABS: BILIRUBIN URINE NEGATIVE (NEGATIVE); BLOOD URINE NEGATIVE (NEGATIVE); COLOR YELLOW; GLUCOSE URINE TRACE mg/dL (NEGATIVE); KETONE URINE 10 mg/dL (NEGATIVE); LEUKOCYTES URINE NEGATIVE (NEGATIVE); NITRITE URINE NEGATIVE (NEGATIVE); PH URINE 6.5; PROTEIN URINE 200 mg/dL (NEGATIVE); SP GRAVITY URINE 1.042; TURBIDITY URINE HAZY (CLEAR); UROBILINOGEN URINE NORMAL (NORMAL)
[2019-08-28 20:56] LABS: UR EPITHELIAL CELLS <10 /HPF (<10); URINE BACTERIA NEGATIVE /HPF; URINE RBC <10 /HPF (<10)
[2019-08-28 21:12] LABS: URINE CRYSTALS NONE SEEN
[2019-08-28] MEDS: DILAUDID PCA VIAL IV PRN (23:30)
[2019-08-29] MEDS: TPN ELECTROLYTES IV SCH ×16 (01:37→22:22)
[2019-08-29] MEDS: [UNRECOGNIZED DRUG - OTHER] IV SCH ×16 (01:37→22:22)
[2019-08-29] MEDS: MAGNESIUM SULFATE IV SCH ×16 (01:37→22:22)
[2019-08-29] MEDS: POTASSIUM CHLORIDE IV SCH ×16 (01:37→22:22)
[2019-08-29] MEDS: ZOFRAN PO SCH ×3 (02:57→20:11)
[2019-08-29] MEDS: PRILOSEC PO SCH (06:02)
[2019-08-29] MEDS: LACTULOSE PO SCH ×2 (10:29→20:11)
[2019-08-29] MEDS: MIRALAX PO SCH ×2 (10:29→20:10)
[2019-08-29 10:54] LABS: AGAP 11; BUN 10 mg/dL (8-22); CALCIUM 9.1 mg/dL (8.8-10.2); CHLORIDE 95 mmol/L (98-107); CHOLESTEROL 103 mg/dL (0-200); COSMO 278; CREATININE 0.5 mg/dL (0.7-1.2); ESTIMATED GFR > 60; GLUCOSE 129 mg/dL (70-104); GOT 21 U/L (10-34); PHOSPHORUS 4.4 mg/dL (2.7-4.5); POTASSIUM 4.4 mmol/L (3.5-5.1); PREALBUMIN 8.5 mg/dL (20-40); SODIUM 139 mmol/L (136-145); TCO2 33 mmol/L (25-35); TRIGLYCERIDES 80 mg/dL (39-160)
[2019-08-29] MEDS ORDERED: LR 1,000 ML IV SCH (11:00)
--- NOTE | 2019-08-29 11:45 | PROGRESS NOTE ---
DATE: 08/29/2019 INTERVAL HISTORY: He underwent sepsis workup including blood culture, chest x- ray, abdominal x- ray, and lactate yesterday. Chest x-ray yesterday had suggested atelectasis in both of his lungs. Abdominal x-ray has recurrent small bowel obstruction with gas-fluid level. Lactate was normal. He continues to remain tachycardic. SUBJECTIVE: He denies new complaints. He and his [id number] state that the patient would like to go to [place]. CURRENT VITALS: Temperature of 98.1 degrees, pulse 121, respiratory 16, blood pressure 133/100. He is saturating 96% on room air. PHYSICAL EXAMINATION: General: On physical examination, he is not in acute distress. Oral cavity: Moist. Lungs: Air entry bilaterally equal. No wheeze or rhonchi. He had decreased breath sounds in bilateral infrascapular region. Cardiovascular: S1, S2 normal. Tachycardic. No murmur, rub, or gallop. Abdomen: Firm, distended, tympanic to percussion. Bowel sounds are present. Mild generalized tenderness. Extremities: No lower extremity edema. Neurologic: He is alert and oriented x3. Rectal: No bowel movements. LABS: CBC was unremarkable with WBC of 9.8, hemoglobin 13.3, platelet 300. His potassium is 4.4, BUN 10, creatinine 0.5, blood glucose 116. His lactate was 1.5. MICROBIOLOGY: No positive data. X-RAYS: No new imaging. ASSESSMENT: 1. Tachycardia, likely in the setting of his metastatic cancer and intra- abdominal pain. I will give him 1 liter of intravenous fluids. Chest x-ray and urinalysis did not have any infection. Lactate was normal. Follow up final blood culture results. 2. 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 Unfortunately, he is not a surgical candidate. I will continue him on oral diet. I advised him to drink GoLYTELY which is at bedside, and I will give him additional suppositories. I encouraged him to do physical activity. 3. Abdominal pain secondary to metastatic pancreatic cancer. Continue intravenous hydromorphone through patient-controlled analgesia pump. He is not showing any signs of respiratory depression at the moment. 4. Severe Protein energy malnutrition due to decreased oral intake and recurrent nausea and vomiting. Continue intravenous Clinimix as well as oral intake. Appreciate dietitian's recommendations. 5. Please continue fentanyl patch for abdominal pain. 6. Metastatic pancreatic cancer with carcinomatosis and peritoneal scarring. He received a dose of Gemzar in August 2019. Further chemotherapy has been on hold. 7. Disposition: Oncology team is working on setting up home hydromorphone patient-controlled analgesia pump, as well as home total parenteral nutrition. We are awaiting that. The patient had expressed to me that he wanted to go to [place] to see his family members. Oncology team is also working through a foundation to see if some of his family members could come to the [place] to visit him as, considering the patient's pain has been intractable on oral pain medication, he may not be able to travel just on oral medications, as well as his nutrition would become challenging. I conveyed this information to the patient and his [id number], PLAN: So, the plan is to await setting up home [employer], as well as home parenteral nutrition by oncology team. cc: Brandin Galloway MD MTDD
[2019-08-29] MEDS: DULCOLAX PR SCH ×2 (12:00→20:10)
[2019-08-29] MEDS: DURAGESIC 75 MICROGM/HR PATCH TD SCH (15:55)
[2019-08-29] MEDS: LOVENOX SUBQ SCH (15:55)
[2019-08-29] MEDS: LR 1,000 ML IV SCH (19:46)
[2019-08-30] MEDS: ZOFRAN PO SCH ×3 (03:35→18:50)
[2019-08-30 05:46] LABS: AGAP 11; BUN 8 mg/dL (8-22); CALCIUM 9.2 mg/dL (8.8-10.2); CHLORIDE 94 mmol/L (98-107); COSMO 276; CREATININE 0.5 mg/dL (0.7-1.2); ESTIMATED GFR > 60; GLUCOSE 134 mg/dL (70-104); POTASSIUM 4.4 mmol/L (3.5-5.1); SODIUM 138 mmol/L (136-145); TCO2 33 mmol/L (25-35)
[2019-08-30 05:50] LABS: ALB/GLOB RATIO 1.2; ALBUMIN 3.4 g/dL (3.5-5.0); DIRECT BILIRUBIN 0.1 mg/dL (0.00-0.20); PHOSPHORUS 4.9 mg/dL (2.7-4.5); TOTAL BILIRUBIN 0.33 mg/dL (0.20-1.00); TOTAL PROTEIN 6.2 g/dL (6.3-8.3)
[2019-08-30] MEDS: PRILOSEC PO SCH (06:11)
[2019-08-30] MEDS: MIRALAX PO SCH ×2 (09:50→21:58)
[2019-08-30] MEDS: DULCOLAX PR SCH ×2 (09:50→21:59)
[2019-08-30] MEDS: LACTULOSE PO SCH ×2 (09:50→21:58)
[2019-08-30] MEDS: DILAUDID PCA VIAL IV PRN (10:42)
[2019-08-30] MEDS ORDERED: DURAGESIC 50 MICROGM/HR PATCH TD SCH (11:45)
--- NOTE | 2019-08-30 16:42 | PROGRESS NOTE ---
DATE: 08/30/2019 INTERVAL HISTORY: Informed by nursing that the patient wanted to discuss leaving the hospital. I had a long discussion with the patient and his brother via phone. They state that he plans on leaving on Monday to go to [place] to stay with his family for the foreseeable future, likely indefinitely. Discussed that we would almost certainly be unable to set up nutrition that would go with him to [place]. Patient expressed understanding and reaffirmed that was his decision. The patient initially said that he wanted to leave today, but after discussion about pain management he did agree to stay for today to let us try to get him on a non-IV pain medication regimen that will keep him comfortable. No new complaints, just some feeling of abdominal bloating. REVIEW OF SYSTEMS: Twelve-point review of systems negative except as per interval history. LABS: Sodium 138, potassium 4.4, BUN 8, creatinine 0.5. VITALS: T-max 99.1 degrees, pulse 100, respirations 18, blood pressure 130/115, O2 saturation 95% on room air. PHYSICAL EXAMINATION: General: In no acute distress, chronically ill- appearing, cachectic. HEENT: Muscle wasting noted. Normocephalic. Moist mucous membranes. Cardiovascular: Regular rate and rhythm. No murmurs noted. Pulmonary: Essentially clear to auscultation bilaterally. Abdomen: Mildly distended. Mild, diffuse tenderness without clement guarding or rebound. Extremities: Peripheral pulses decreased but present. No clubbing or cyanosis. Neurologic: Cranial nerves grossly intact, globally weak but no focal deficits identified. Psychiatric: Essentially normal mood and affect. Awake, alert, cooperative. ASSESSMENT AND PLAN: 1. Likely small bowel obstruction, secondary to malignancy and has not really improved much, although the patient has not had any vomiting over the last few days. The patient has been on total parenteral nutrition and originally the plan was to continue him on that at home once that could be arranged. The patient is now stating that he wants to move to [place] to be with his family for whatever time he has left. We will see if the patient can take any significant p.o. 2. Metastatic pancreatic cancer with carcinomatosis and intractable pain. Patient has been on patient-controlled analgesia pump, on medium dose fentanyl patch and occasional Percocet. We will try to get him on a regimen of non-IV narcotics that will keep him controlled. We will add 50 mcg to his current patch for 125 mcg. We will change Percocet to Oxy- IR 30 mg every 3 hours as needed. If the patient struggles with taking the pills themselves then we will transition to oral liquid narcotic and see how he does with that. If we can get his pain reasonably controlled, then anticipate patient will want to be discharged out of the hospital tomorrow to get on a plane on Monday. 3. Severe protein-calorie malnutrition, cancer related cachexia. Has been on total parenteral nutrition as above. I suspect the patient will not be able to sustain himself with p.o. intake alone given his ongoing small bowel obstruction, which is unlikely to improve significantly, but as above, the patient is adamant in his desire to go home. [facility]
[2019-08-30] MEDS: LOVENOX SUBQ SCH (16:45)
[2019-08-30] MEDS: LR 1,000 ML IV SCH (16:45)
[2019-08-30] MEDS ORDERED: MAGNESIUM SULFATE IV SCH ×8 (20:00)
[2019-08-30] MEDS ORDERED: TPN ELECTROLYTES IV SCH ×8 (20:00)
[2019-08-30] MEDS ORDERED: [UNRECOGNIZED DRUG - OTHER] IV SCH ×8 (20:00)
[2019-08-30] MEDS ORDERED: POTASSIUM CHLORIDE IV SCH ×8 (20:00)
[2019-08-31] MEDS: OXY IR PO PRN ×3 (00:49→10:11)
[2019-08-31] MEDS: ZOFRAN PO SCH ×2 (03:56→12:40)
[2019-08-31] MEDS: PRILOSEC PO SCH (06:04)
[2019-08-31 08:18] LABS: AGAP 9; ALBUMIN 3.4 g/dL (3.5-5.0); BUN 7 mg/dL (8-22); CALCIUM 9.2 mg/dL (8.8-10.2); CHLORIDE 96 mmol/L (98-107); COSMO 275; CREATININE 0.5 mg/dL (0.7-1.2); ESTIMATED GFR > 60; GLUCOSE 125 mg/dL (70-104); MAGNESIUM 2.1 mg/dL (1.5-2.7); PHOSPHORUS 4.8 mg/dL (2.7-4.5); SODIUM 138 mmol/L (136-145); TCO2 33 mmol/L (25-35)
[2019-08-31] MEDS: DULCOLAX PR SCH ×2 (10:10→10:19)
[2019-08-31] MEDS: LACTULOSE PO SCH (10:10)
[2019-08-31] MEDS: MIRALAX PO SCH (10:10)
[2019-08-31 11:55] VITALS: BP 133/96
--- NOTE | 2019-09-01 09:11 | DISCHARGE SUMMARY ---
ADMISSION DATE: 08/14/2019 DISCHARGE DATE: 08/31/2019 CONSULTS: Oncology, Dr. Adams; surgery, Dr. Browne. DISCHARGE DIAGNOSES: 1. Partial small-bowel obstruction. 2. Peritoneal carcinomatosis. 3. Pancreatic cancer with metastasis. 4. Severe chronic pain. 5. Severe protein calorie malnutrition. 6. Cancer-related cachexia. HOSPITAL COURSE: Patient with known history of pancreatic cancer with carcinomatosis who follows with Dr. Adams. He came in complaining of abdominal pain for approximately 2 weeks. He was denying any vomiting at that time, although initial evaluation did suggest partial small-bowel obstruction. He required fairly high doses of IV narcotics to control his pain and was eventually put on a [employer] pump. This did control his pain but it was difficult to get him off of it. His small-bowel obstruction never entirely resolved, although he was able to take small amounts of p.o. without difficulty by the time of discharge. The patient was placed on TPN for nutrition. Attempts were made to get patient set up with TPN and [employer] pump at home. However, patient eventually decided that he wanted to leave the hospital and go to [place] to be with his family. We had a long discussion about the risks versus benefits of this and our strong suspicion that he would not be able to support himself nutritionally with p.o. intake alone. The patient remained adamant in his desire to go be with his family. We adjusted his non-IV pain medication. We had to go up fairly high on his fentanyl patch, eventually having him on a 75 and a 50 mcg fentanyl patch together, as well as fairly aggressive oxycodone IR 30 mg every 3 hours as needed. This did seem to control his pain. He was able to take the pills. Again discussed with patient and he again reiterated that he wanted to be discharged to get on a plane the next morning, so this was facilitated. DISCHARGE DIET: GI soft as tolerated. DISCHARGE MEDICATIONS: Oxycodone IR 30 mg p.o. q.3 hours as needed, fentanyl 75 and 50 mcg for a total of 125 mcg patch q.72 hours, Zofran 4 mg oral dissolving tablets 4 mg sublingual q.6 hours as needed. FOLLOWUP AND PLAN: Patient discharging home. His current plan is to fly to [place] to be with family tomorrow and to seek a doctor there. If the patient remains in the area, then is to follow up with PCP and Dr. Adams. Greater than 30 minutes spent arranging discharge and counseling patient.
== END 2019-08-31 14:09 | disposition home or self-care (01) | DRG 374 ==
LOC: ED 09:44 → EDIPHOLD 13:43 → SUATTDRO 13:43 → 1N 17:09
PROVIDERS: ATTEND Internal Medicine